=== PATIENT | female | born 1940 | race Caucasian/White ===

== ENCOUNTER 2017-01-04 12:34 | Inpatient (IN) | payer MEDICARE, BC ==
[2017-01-04] VITALS (11 sets, daily range): BP systolic 100–183; BP diastolic 49–100
[~2017-01-04] VITALS: Ht 160 cm; Wt 73.7 kg
--- NOTE | 2017-01-04 15:25 | PDOC2 ---
LIZMATTHEW Tomas HEEL TOP LIFT SPLITTER 01/04/17 1525: CARDIAC CONSULT DATE OF CONSULT Date of Consult DATE: 01/04/17 TIME: 15:23 REASON FOR CONSULT Reason for Consult: RA thrombus REFERRING PHYSICIAN Referring Physician: Dr. Jim Villanueva SOURCE Source: Chart review, Patient HISTORY OF PRESENT ILLNESS HISTORY OF PRESENT ILLNESS 76 year old female transferred from [facility] after CT scan demonstrated RA thrombus extending into the IVC. Patient with at least 10 day history of URI with progressive symptoms and reports spending significant time in bed over that last 10 days. Vigorous cough productive of green sputum until today. Denies chest pain or pressure, though dyspnea at rest and with exertion, PND, orthopnea and dizziness, lightheadedness with near syncope. Denies lower extremity edema, though with chronic bilateral swelling in knees after total joint replacement and revisions. Has not taken oral meds in about 10 days. D- Dimer was 2.01 @ [facility] earlier today and now on heparin gtt. NT-proBNP WNL. Reason for Visit: RA thrombus PAST MEDICAL HISTORY Cardiovascular: CAD (SC 5 - 6 years ago with LHC reported as normal), HTN, Hyperlipidemia CENTRAL NERVOUS SYSTEM: CVA (affecting speech - 1996) GI: GERD Heme/Onc: Other (denies history of previous DVT/PE/clot or clotting disorders) Hepatobiliary: No pertinent hx Psych: Anxiety Musculoskeletal: Osteoarthritis Rheumatologic: Rheumatoid arthritis Infectious disease: No pertinent hx ENT: No pertinent hx, Other (macular degeneration with 5 corrective surgeries) Renal/: No pertinent hx Endocrine: Diabetes (?; "borderline"), Hypothyroidism Dermatology: No pertinent hx PAST SURGICAL HISTORY Past Surgical History: Appendectomy, Cholecystectomy, Total knee replacement ( bilateral with revisions), Tonsillectomy, Hysterectomy (KRISTA with BSO), Other ( bilateral great toe joint replacements; left shoulder joint replacement; right elbow nerve transposition; 5 eye surgeries; bladder lift; back surgery with pins placed) FAMILY HISTORY Family History negative for CAD or clotting disorders SOCIAL HISTORY Smoke: No ALCOHOL: none Drugs: None Lives: with Family () ALLERGIES ALLERGIES: Coded Allergies: Penicillins (Verified Allergy, Intermediate, Hives, 01/04/17) amoxicillin (Verified Allergy, Intermediate, 01/04/17) clavulanic acid (Verified Allergy, Intermediate, 01/04/17) codeine (Verified Allergy, Intermediate, 01/04/17) erythromycin base (Verified Allergy, Intermediate, 01/04/17) morphine (Verified Allergy, Intermediate, 01/04/17) ROS Review of System 14 point review with pertinent positives in HPI PHYSICAL EXAM General: Alert, Oriented X3, Cooperative, mild distress HEENT: Atraumatic, PERRLA Lungs: Other (coarse, decreased in bases) Heart: Regular rate, Normal S1, Normal S2, No murmurs, Other (negative for carotid bruits) Abdomen: Normal bowel sounds, Soft Extremities: No edema, Normal pulses Skin: No rashes Neuro: Normal speech Psych/Mental Status: Mental status NL, Mood NL MUSCULOSKELETAL: Osteoarthritic changes both hands, Other (bilateral well healed incisions on knees) VITALS VITALS Vital Signs Date Time Temp Pulse Resp B/P Pulse Ox O2 Delivery O2 Flow Rate FiO2 01/04/17 14:00 56 18 173/85 98 Nasal Cannula 2.0 01/04/17 13:30 98.5 98.5 LABS Lab: see [facility] transfer paper work IMAGES IMAGES 01/04/2017 @ [facility]: CTa chest: 1.There is a large filling defect identified in the right atrium of the heart with possible extension into the inferior vena cava, suspicious for thrombus recommend echocardiogram and ultrasound of the bilateral lower extremities and the iliac veins and IVC for further evaluation. Other possibility includes flow mixing artifact. 2. No evidence of central pulmonary embolism. 3. Mild patchy diffuse groundglass airspace opacity identified in the bilateral lungs likely could be mild pulmonary edema or patchy glass infiltrates. Follow-up to resolution. ASSESSMENT/PLAN ASSESSMENT/PLAN 1. RA thrombus with ? of extension through SVC & IVC continue heparin gtt GWEN in a.m with general anesthesia for further evaluation @ 1130; discussed with patient and family 2. HTN resume home meds 3. ? of DM check A1C 4. HLD continue statin therapy FLP in a.m. 5. CAD history reported clean cath 4 -5 years ago 6. hypothyroidism continue meds 7. RA/OA hold oral NSAIDS while treated with heparin gtt 8. GERD continue H2 blockers Problems: SHAN TORRES MD 01/04/17 2140: CARDIAC CONSULT ALLERGIES ALLERGIES: Coded Allergies: Penicillins (Verified Allergy, Intermediate, Hives, 01/04/17) amoxicillin (Verified Allergy, Intermediate, 01/04/17) clavulanic acid (Verified Allergy, Intermediate, 01/04/17) codeine (Verified Allergy, Intermediate, 01/04/17) erythromycin base (Verified Allergy, Intermediate, 01/04/17) morphine (Verified Allergy, Intermediate, 01/04/17) ASSESSMENT/PLAN ASSESSMENT/PLAN Pt. seen and examined. Agree with above CONFERENCE INTERPRETER note. 76 yo woman presenting with dyspnea. OSH ct scan suggestive of RA thrombus. Reviewed CT images, compared to 1 year ago. Does not appear to have classic thrombus. suspect this is artifact she has had dyspnea x 2 weeks - suspect related to viral infection and uncontrolled BP Will plan for GWEN for definitive evaluate in a.m. Thanks for consultation. Problems: MATTHEW HILL APRN Jan 04, 2017 15:25 SHAN TORRES MD Jan 04, 2017 21:40
[2017-01-04] MEDS ORDERED: GABA600T2 PO (15:33)
[2017-01-04] MEDS ORDERED: LEVO5TAB2 PO (15:33)
[2017-01-04] MEDS ORDERED: SIMV80TA3 PO (15:33)
[2017-01-04] MEDS ORDERED: FAMO40TA57 PO (15:33)
[2017-01-04] MEDS ORDERED: CHOL10002 PO (15:33)
[2017-01-04] MEDS ORDERED: TRAZ50TA15 PO (15:33)
[2017-01-04] MEDS ORDERED: LEVO88TA4 PO (15:33)
[2017-01-04] MEDS ORDERED: CELE200C PO (15:33)
[2017-01-04] MEDS ORDERED: ALPR0.5T6 PO (15:33)
[2017-01-04] MEDS ORDERED: METO-269 PO (15:33)
[2017-01-04] MEDS ORDERED: 0.9 % SODIUM CHLORIDE 10 ML DISP.SYRIN. IV PRN (16:00)
[2017-01-04] MEDS ORDERED: LIDOCAINE 2% TOPICAL JELLY 5GM TUBE. TP ONE (16:00)
[2017-01-04] MEDS ORDERED: LIDOCAINE 2% VISCOUS 15 ML SOLUTION. MM ONE (16:00)
[2017-01-04] MEDS ORDERED: BENZOCAINE ONE 20% MUCOSAL SPRAY. MM (16:00)
[2017-01-04] MEDS: ALPRAZOLAM 0.5 MG TABLET PO SCH ×2 (16:26→21:03)
[2017-01-04] MEDS: METOPROLOL SUCC 24HR ER 50 MG TAB.ER.24H. PO SCH (16:26)
[2017-01-04] MEDS ORDERED: HEPARIN 25,000UTS/500ML PREMIX 500 ML IV PRN ×2 (16:45→17:15)
[2017-01-04] MEDS ORDERED: HEPARIN for IV BOLUS 10,000 UNIT/10 ML VIAL. IV PRN ×2 (17:15)
--- NOTE | 2017-01-04 17:41 | HP ---
ADMIT DATE: 01/04/2017 CHIEF COMPLAINT: Shortness of breath. HISTORY OF PRESENT ILLNESS: The patient is a 76-year-old woman without significant medical issues, who presented to the Emergency Room at [facility] 10 days ago with upper respiratory illness. She had a chest x-ray done and was sent home with a prescription for azithromycin. However, symptoms persisted and she returned today. A CT was obtained revealing a filling defect in the upper IVC reaching the right atrium. The ER physician consulted Dr. Carranza, who requested the patient be transferred to here for evaluation by GWEN. The patient relates that she did not have any fevers, but does have upper respiratory stuffiness. No sore throat, has cough, fairly dry. Have not been eaten terribly well for the past 5 days or so, but denies any nausea, vomiting or diarrhea. Family members are all sick as well. In elucidating further details, she denies any personal or family history of blood clots. She did have a leg injury about 2 weeks ago, which resulted in swelling in her calf for a couple of days on the left side. The symptoms have resolved since. Respiratory symptoms started shortly thereafter. PAST MEDICAL HISTORY: Hypothyroidism, hypertension, osteoarthritis, status post bilateral knee replacements, left shoulder replacement x 2. FAMILY HISTORY: Positive for lung cancer in father (smoker). SOCIAL HISTORY: She is , living with her . Never smoked, no alcohol, no drug use. ALLERGIES: PENICILLIN, CODEINE, MORPHINE, ERYTHROMYCIN BASE AND CLAVULANIC ACID. MEDICATIONS: Current medications reconciled with MAR. REVIEW OF SYSTEMS: Positive as per HPI. Rest of organ system review is negative. PHYSICAL EXAMINATION: VITAL SIGNS: From today show a blood pressure of 180/90, heart rate of 62, respiratory rate is 18. She is afebrile. GENERAL: This is a well-nourished, 76-year-old woman, alert and oriented, in no acute distress. HEENT: Shows no scleral icterus. Oral mucosa is pink and moist. Voice is nasally. NECK: Supple, without any palpable lymphadenopathy. LUNGS: Clear to auscultation bilaterally. CARDIOVASCULAR: Has regular rate and rhythm. ABDOMEN: Has positive bowel sounds, soft, nontender. EXTREMITIES: Show no edema. No Homans sign. SKIN: Warm, soft and dry without any rash. LABORATORY DATA: CBC and chemistries reviewed from [facility], anti-Xa is 0.4, APTT at 98. ASSESSMENT AND PLAN: This is a 76-year-old woman with apparent respiratory infection, probably viral, who was found incidentally with a filling defect versus flow artifact inferior vena cava into the right atrium. Dr. Carranza has been informed. He has planning a GWEN later today to evaluate the lesion. We will keep her on intravenous heparin for the time being. The history is somewhat unusual. We will try and obtain ultrasound of the lower extremities as well. She is n.p.o. for now until further evaluations are completed. Plan on restarting essential medications once procedures have been completed. YEVGENIY COTO MD DR: ÓSCAR/nts JOB#: [id number] / [id number] JOSE
[2017-01-04] MEDS ORDERED: FAMOTIDINE 20 MG TABLET. PO SCH (21:00)
[2017-01-04] MEDS ORDERED: SIMVASTATIN 40 MG TABLET. PO SCH (21:00)
[2017-01-04] MEDS ORDERED: GABAPENTIN 300 MG CAPSULE. PO SCH (21:00)
[2017-01-05] VITALS (13 sets, daily range): BP systolic 86–127; BP diastolic 48–68
[2017-01-05 04:17] LABS: HEMATOCRIT 43.6 % (36.0-47.0); HEMOGLOBIN 14.6 g/dL (12.0-15.5); RED BLOOD COUNT 5.08 x10^6/uL (3.50-5.40); RED CELL DISTRIBUTION WIDTH 14.9 % (11.5-14.5); WHITE BLOOD COUNT 7.7 x10^3/uL (4.0-11.0)
[2017-01-05] MEDS ORDERED: ALBUTEROL SULFATE 2.5 MG/3 ML NEBU. NEB PRN (05:00)
[2017-01-05 05:03] LABS: CALCIUM 9.1 mg/dL (8.5-10.1); CREATININE 0.8 mg/dL (0.6-1.0); GFR 70.1; MAGNESIUM 2.6 mg/dL (1.8-2.4); POTASSIUM 3.9 mmol/L (3.5-5.1)
[2017-01-05 05:07] LABS: CHOLESTEROL/HDL RATIO 5.1
[2017-01-05] MEDS ORDERED: LEVOTHYROXINE 88 MCG TABLET PO SCH (07:00)
[2017-01-05] MEDS ORDERED: IV RINGERS,LACTATED 1000ML 1,000 ML IV SCH (07:00)
[2017-01-05] MEDS: IPRATRPIUM/ALBUTEROL 0.5/2.5MG 3 ML NEBU. NEB SCH ×4 (07:53→16:31)
[2017-01-05] MEDS ORDERED: CHOLECALCIFEROL (VITAMIN D3) 1,000 UNIT TABLET PO SCH (09:00)
[2017-01-05] MEDS: METOPROLOL SUCC 24HR ER 50 MG TAB.ER.24H. PO SCH (09:00)
[2017-01-05] MEDS: ALPRAZOLAM 0.5 MG TABLET PO SCH (09:00)
[2017-01-05] MEDS ORDERED: CETIRIZINE HCL 10 MG TABLET PO SCH (09:00)
--- NOTE | 2017-01-05 10:06 | PDOC ---
PROGRESS NOTES Chief Complaint Chief Complaint Abn CT findings URI ASSESSMENT AND PLAN: 1. Filling defect in IVC -> R atrium: on empiric heparin. GWEN today 2. URI: s/p azithro. treat symptomatically Vitals Vitals Vital Signs Date Time Temp Pulse Resp B/P Pulse Ox O2 Delivery O2 Flow Rate FiO2 01/05/17 07:53 95 Nasal Cannula 2.0 01/05/17 06:00 52 14 104/48 01/05/17 04:00 97.9 97.9 Physical Exam General: Alert, Oriented X3, Cooperative, No acute distress Heart: Regular rate, No murmurs Lungs: Clear Abdomen: Normal bowel sounds, Soft Extremities: No edema Skin: No rashes Labs LABS Laboratory Tests Test 01/04/17 14:00 01/04/17 15:55 01/04/17 22:00 01/05/17 04:00 Nasal Screen MRSA (PCR) Negative (Negative) Activated Partial Thromboplast Time 98SEC (24-38) Heparin Anti-Xa Act, Unfractionated 0.41IU/mL (0.30-0.70) 0.32IU/mL (0.30-0.70) 0.35IU/mL (0.30-0.70) White Blood Count 7.7x10^3/uL (4.0-11.0) Red Blood Count 5.08x10^6/uL (3.50-5.40) Hemoglobin 14.6g/dL (12.0-15.5) Hematocrit 43.6% (36.0-47.0) Mean Corpuscular Volume 86fL (79-100) Mean Corpuscular Hemoglobin 29pg (25-35) Mean Corpuscular Hemoglobin Concent 34g/dL (31-37) Red Cell Distribution Width 14.9% (11.5-14.5) Platelet Count 236x10^3/uL (140-400) Sodium Level 140mmol/L (136-145) Potassium Level 3.9mmol/L (3.5-5.1) Chloride Level 105mmol/L (98-107) Carbon Dioxide Level 26mmol/L (21-32) Anion Gap 9 (6-14) Blood Urea Nitrogen 15mg/dL (7-20) Creatinine 0.8mg/dL (0.6-1.0) Estimated GFR (Cockcroft-Gault) 70.1 Glucose Level 95mg/dL (70-99) Calcium Level 9.1mg/dL (8.5-10.1) Magnesium Level 2.6mg/dL (1.8-2.4) Triglycerides Level 256mg/dL (0-150) Cholesterol Level 200mg/dL (0-200) LDL Cholesterol, Calculated 110mg/dL (0-100) VLDL Cholesterol, Calculated 51mg/dL (0-40) HDL Cholesterol 39mg/dL (40-60) Cholesterol/HDL Ratio 5.1 Review of Systems Review of Systems + cough w/ sputum production. no CP. anxious YEVGENIY COTO MD Jan 05, 2017 10:06
[2017-01-05] MEDS ORDERED: BENZOCAINE ONE 20% MUCOSAL SPRAY. (10:33)
[2017-01-05] MEDS ORDERED: LIDOCAINE 2% VISCOUS 15 ML SOLUTION. ONE (10:33)
[2017-01-05] MEDS ORDERED: LIDOCAINE 2% TOPICAL JELLY 30GM TUBE. TP ONE (10:33)
[2017-01-05] MEDS ORDERED: 0.9 % SODIUM CHLORIDE 10 ML DISP.SYRIN. IV PRN (11:30)
[2017-01-05] MEDS ORDERED: BENZOCAINE ONE 20% MUCOSAL SPRAY. MM (11:30)
[2017-01-05] MEDS ORDERED: LIDOCAINE 2% TOPICAL JELLY 5GM TUBE. TP ONE (11:30)
[2017-01-05] MEDS ORDERED: LIDOCAINE 2% VISCOUS 15 ML SOLUTION. MM ONE (11:30)
[2017-01-05] MEDS ORDERED: PROPOFOL 20 ML IV ONE (11:40)
[2017-01-05] MEDS ORDERED: LIDOCAINE 2% 100 MG/5 ML DISP.SYRIN. ONE (11:40)
[2017-01-05] MEDS ORDERED: BENZOCAINE/MENTHOL LOZENGE. PO PRN (14:30)
--- NOTE | 2017-01-05 15:07 | CARD ---
APPROVED REPORT EXAM: Two-dimensional and M-mode echocardiogram with Doppler and color Doppler. INDICATION Rt. atrial thrombus Reason For Test : Rt, atrial thrombus PROCEDURE After obtaining informed consent, patient underwent transesophageal echo in the ICU. Type of Sedation : Conscious Sedation Sedation was achieved with Propofol intravenously. Transesophageal probe was inserted and advanced into esophagus by Mitchel Carranza MD. The GWEN was performed without complications. Throughout the procedure, the blood pressure, pulse oximetry, cardiac rhythm, and rate were monitored . The patient tolerated the procedure without adverse effects. Recovery from conscious sedation was une ventful and vital signs were stable. LEFT VENTRICLE The left ventricle is normal size. There is normal left ventricular wall thickness. The left ventricu lar systolic function is normal and the ejection fraction is within normal range. EF 65% There is nor mal LV segmental wall motion. No left ventricle thrombus noted on this study. RIGHT VENTRICLE The right ventricle is normal size. There is normal right ventricular wall thickness. The right ventr icular systolic function is normal. ATRIA The left atrium size is normal. The right atrium size is normal. There is no mass or thrombus suspect ed in the right atrium. The interatrial septum is intact with no evidence for an atrial septal defect or patent foramen ovale as noted on 2-D or Doppler imaging. There is no thrombus noted in the left a trial appendage. AORTIC VALVE The aortic valve is mildly sclerotic. The aortic valve is trileaflet. Doppler and Color Flow revealed trace to mild aortic regurgitation. There is no significant aortic valvular stenosis. MITRAL VALVE There is no evidence of mitral valve prolapse. There is no mitral valve stenosis. Doppler and Color F low revealed trace mitral regurgitation. TRICUSPID VALVE Doppler and Color Flow revealed trace tricuspid regurgitation. There is no pulmonary hypertension. PULMONIC VALVE The pulmonary valve is normal in structure and function. Doppler and Color Flow revealed no pulmonic valvular regurgitation. There is no pulmonic valvular stenosis. GREAT VESSELS The aortic root is normal in size. The ascending aorta is normal in size. The pulmonary artery is nor mal. Normal pulmonary venous flow (Doppler). The IVC is normal in size and collapses >50% with inspir ation. Critical Notification Critical Value: No <Conclusion> The left ventricular systolic function is normal and the ejection fraction is within normal range. EF 65% There is normal LV segmental wall motion. The right atrium size is normal. There is no mass or thrombus suspected in the right atrium or RA/IVC junction. The IVC is normal in size and collapses >50% with inspiration.
--- NOTE | 2017-01-05 15:49 | RAD ---
Chest, 2 views, 01/05/2017: History: Chest congestion and cough The heart is mildly enlarged. There is calcific plaquing of the aorta. The pulmonary vascularity is normal. There is a calcified granuloma in the left lower lobe. A density at the cardiac apex is compatible with a prominent epicardial fat pad. No acute infiltrate is seen. There is no evidence of pleural fluid. A left shoulder prosthesis is in place. IMPRESSION: 1. Mild cardiomegaly and aortic atherosclerosis. 2. No acute abnormality is detected.
--- NOTE | 2017-01-06 20:27 | DS ---
DATE OF DISCHARGE: 01/05/2017 CHIEF COMPLAINT: Abnormal CT findings, upper respiratory infection. HOSPITAL COURSE: The patient is a 76-year-old woman with minimal medical issues, presented to the urgent care center at [facility] with shortness of breath and cough for the past 10 days. She had received outpatient antibiotic regimen without any relief of her symptoms. A CT of the chest revealed an abnormal filling defect in the inferior vena cava, reaching into the right atrium. Because of concerns for potential blood clot, she was transferred to [facility] for further workup and care. She was started on heparin drip. A GWEN was performed by Dr. Carranza on 11/07/2016, which did not reveal any abnormalities in the area of question. Drip was, therefore, stopped. The patient was discharged to home. For her ongoing respiratory symptoms, the CT actually had ruled out pneumonia. She was, therefore, treated as bronchitis, was given a Medrol Dosepak. pHYSICAL EXAM: VS: stable GEN: alert and oriented CV: regular rate and rhythm PULM: clear to auscultation GI: normal bowel sounds EXR: no edema DISCHARGE DIAGNOSES: CT abnormality, upper respiratory infection. DISPOSITION: To home. CONDITION: Stable. DISCHARGE MEDICATIONS: Please refer to MAR. DISCHARGE INSTRUCTIONS: The patient will follow up with PCP in 1-2 weeks. YEVGENIY COTO MD DR: ÓSCAR/nts JOB#: [id number] / [id number] JOSE
== END 2017-01-05 18:26 | disposition home or self-care (01) | DRG 153 ==
LOC: 1 WEST ICU 13:50
PROVIDERS: ADMIT Internal Medicine Hematology & Oncology; ATTEND Internal Medicine Hematology & Oncology
PROC: B24BZZ4 Ultrasonography of Heart with Aorta, Transesophageal (ICD-10-PCS; principal; 2017-01-05 11:30)
DX: J06.9 Acute upper respiratory infection, unspecified (principal); I10 Essential (primary) hypertension; E78.5 Hyperlipidemia, unspecified; I25.10 Atherosclerotic heart disease of native coronary artery without angina pectoris; K21.9 Gastro-esophageal reflux disease without esophagitis; E03.9 Hypothyroidism, unspecified; E11.9 Type 2 diabetes mellitus without complications; J40 Bronchitis, not specified as acute or chronic; Z96.612 Presence of left artificial shoulder joint; M19.90 Unspecified osteoarthritis, unspecified site; F41.9 Anxiety disorder, unspecified; M06.9 Rheumatoid arthritis, unspecified; Z96.653 Presence of artificial knee joint, bilateral; Z80.1 Family history of malignant neoplasm of trachea, bronchus and lung; Z86.73 Personal history of transient ischemic attack (TIA), and cerebral infarction without residual deficits; Z88.5 Allergy status to narcotic agent; Z88.0 Allergy status to penicillin; Z88.6 Allergy status to analgesic agent; Z88.1 Allergy status to other antibiotic agents; Z91.041 Radiographic dye allergy status; Z90.49 Acquired absence of other specified parts of digestive tract; Z90.710 Acquired absence of both cervix and uterus
CPT/HCPCS: 36415; 71020; 80048; 80061; 83036; 83735; 85027; 85520; 85730; 87641; 93312; 93325; 94250; 94640; J2704; J7620

== ENCOUNTER 2017-04-04 15:12 | Inpatient (IN) | payer MEDICARE, BC ==
[~2017-04-04] VITALS: Ht 160 cm; Wt 79.0 kg
[~2017-04-04 15:12] MED LIST: ALPR0.5T6 PO; CELE200C PO; CHOL10002 PO; FAMO40TA57 PO; GABA600T2 PO; LEVO5TAB2 PO; LEVO88TA4 PO; METO-269 PO; SIMV80TA3 PO; TRAZ50TA15 PO
[2017-04-04 17:27] VITALS: BP 135/65
[2017-04-04] MEDS ORDERED: ACETAMINOPHEN 650 MG/20.3 ML SOLUTION. PO PRN (17:45)
[2017-04-04] MEDS ORDERED: ONDANSETRON PF 4 MG/2 ML VIAL. IV PRN (17:45)
[2017-04-04] MEDS ORDERED: fentaNYL PF VIAL 100 MCG/2 ML VIAL IV PRN ×2 (17:45→21:15)
[2017-04-04] MEDS ORDERED: IBUPROFEN 400 MG TABLET. PO PRN (17:45)
[2017-04-04] MEDS ORDERED: HYDROcodone/APAP 5/325MG 1 TAB TABLET PO PRN (17:45)
[2017-04-04 18:02] VITALS: BP 135/65
[2017-04-04 18:45] LABS: BASO # 0.1 x10^3/uL (0.0-0.2); BASO % 1 % (0-3); EOS % 2 % (0-3); HEMOGLOBIN 13.2 g/dL (12.0-15.5); LYMPH # 1.2 x10^3/uL (1.0-4.8); LYMPH % 22 % (24-48); MEAN CORPUSCULAR HEMOGLOBIN 30 pg (25-35); MEAN CORPUSCULAR HGB CONC 34 g/dL (31-37); MEAN CORPUSCULAR VOLUME 88 fL (79-100); MONO % 8 % (0-9); NEUT % 68 % (31-73); PLATELET COUNT 197 x10^3/uL (140-400); RED BLOOD COUNT 4.45 x10^6/uL (3.50-5.40); RED CELL DISTRIBUTION WIDTH 14.1 % (11.5-14.5); WHITE BLOOD COUNT 5.6 x10^3/uL (4.0-11.0)
[2017-04-04 18:53] LABS: INR 1.1 (0.8-1.1); PROTHROMBIN TIME PATIENT 13.2 SEC (11.7-14.0)
[2017-04-04 18:57] LABS: CALCIUM 9.2 mg/dL (8.5-10.1); CREATININE 0.8 mg/dL (0.6-1.0); GFR 69.9; POTASSIUM 4.2 mmol/L (3.5-5.1)
[2017-04-04 19:00] VITALS: BP 138/50
[2017-04-04] MEDS ORDERED: traZODone 50 MG TABLET. PO PRN (19:00)
--- NOTE | 2017-04-04 19:02 | PDOC2 ---
NEUROLOGY CONSULT Date of Admission Date of Admission DATE: 04/04/17 TIME: 18:52 Reason for Consult Reason for Consult: IMPRESSION: Worsening headaches x 6 days. HTN Hypothyroidism Obesity. RECOMMENDATIONS/PLAN: Pain control. Brain MRI w/wo contrast. Lab: see orders including ESR. Treat medical diseases. Discussed with her daughter at bedside. HISTORY OF THE PRESENT ILLNESS: 77-y-old female patient with history of infrequent headaches in the past developed severe headaches for about 6 days this time to be hospitalized for further evaluation. She stated she had a few headaches in the past but not as severe as it this time. No motor or sensory deficits noted. No resistance of neck on exam. PAST MEDICAL HISTORY: Hypothyroidism, hypertension, osteoarthritis, status post bilateral knee replacements, left shoulder replacement x 2. FAMILY HISTORY: Positive for lung cancer in father (smoker). SOCIAL HISTORY: She is , living with her . Never smoked, no alcohol, no drug use. ALLERGIES: PENICILLIN, CODEINE, MORPHINE, ERYTHROMYCIN BASE AND CLAVULANIC ACID. MEDICATIONS: Refer to MAR REVIEW OF SYSTEMS: Constitutional: No malnutrition, weight loss, cachexia. Head: No traumatic brain or head injury. Skin: No edema, or rash. Ear: No infection. Eyes: No vision loss or color blindness. Nose: No bleeding or purulent discharges. Hearing: No hearing decrease. Neck: No recent injury. Breast: No history of cancer, masses,or discharges. Cardiac: No DC, arrhythmia. Pulmonary: No COPD. GI: No GI ulcer, GI bleeding. Urinary/genital: UTI. Endocrinologic: Obesity. Skeletomuscular: OA. Neurological: see HP. Psychiatric: Denies drug use/abuse. Otherwise, not [id number] review of systems. PHYSICAL EXAMINATION: General appearance is in acute distress. HEENT: Normocephalic and nontraumatic. Eyes, nose, ears, and throat are unremarkable. Neck is supple. No lymphadenopathy. No crepitus. Cardiovascular: S1, S2, regular rate and rhythm. Pulmonary: Clear to auscultation bilaterally. Abdomen: Bowel sounds are positive. Extremities: No rash, lesions, or edema. No restriction of range of motion NEUROLOGICAL EXAMINATION: Awake. Oriented to time, place and person. PERRL. EOMI. CN: no focal findings. Muscle tone: within normal. Muscle strength: 5- DTR: 2 UE, 0-1 at knee Plantar reflex: Flexor/Neutral response bilaterally Gait: not examined in bed. Sensory exam: no abnormal findings. No cerebellar signs elicited. F-T-N test fine. Current Medications Current Medications Current Medications Acetaminophen (Tylenol) 650 mg PRN Q6HRS PRN PO MILD PAIN / TEMP; Start at 17:45 Ibuprofen (Motrin) 400 mg PRN Q6HRS PRN PO INFLAMMATION; Start 04/04/17 at 17: 45 Ondansetron HCl (Zofran) 4 mg PRN Q6HRS PRN IV NAUSEA/VOMITING; Start 04/04/17 at 17:45 Acetaminophen/ Hydrocodone Bitart (Lortab 5/325) 1 tab Q6HRS PRN PO PAIN; Start 04/04/17 at 17:45; Status UNV Fentanyl Citrate (Fentanyl 2ml Vial) 25 mcg PRN Q2HR PRN IV PAIN Last administered on 04/04/17t 18:40; Start 04/04/17 at 17:45 Active Scripts Active Reported Celebrex (Celecoxib) 200 Mg Capsule 1 Cap PO DAILY Vitamin D (Cholecalciferol (Vitamin D3)) 1,000 Unit Tablet 1,000 Unit PO DAILY Trazodone Hcl 50 Mg Tablet 50 Mg PO HS PRN Simvastatin 80 Mg Tablet 80 Mg PO HS Toprol Xl (Metoprolol Succinate) 50 Mg Tab.er.24h 1 Tab PO DAILY Levothyroxine Sodium 88 Mcg Tablet 1 Tab PO DAILY Levocetirizine Dihydrochloride 5 Mg Tablet 1 Tab PO DAILY Gabapentin 600 Mg Tablet 600 Mg PO HS Pepcid (Famotidine) 40 Mg Tablet 40 Mg PO DAILY Alprazolam 0.5 Mg Tablet 1 Tab PO BID Allergies Allergies: Coded Allergies: Penicillins (Verified Allergy, Intermediate, Hives, 01/04/17) amoxicillin (Verified Allergy, Intermediate, 01/04/17) clavulanic acid (Verified Allergy, Intermediate, 01/04/17) codeine (Verified Allergy, Intermediate, 01/04/17) erythromycin base (Verified Allergy, Intermediate, 01/04/17) morphine (Verified Allergy, Intermediate, 01/04/17) Vitals VITALS Vital Signs Date Time Temp Pulse Resp B/P (MAP) Pulse Ox O2 Delivery O2 Flow Rate FiO2 04/04/17 18:40 96 04/04/17 18:02 97.9 54 20 135/65 (88) Room Air 97.9 Labs Labs Laboratory Tests Test 04/04/17 18:35 White Blood Count 5.6 x10^3/uL (4.0-11.0) Red Blood Count 4.45 x10^6/uL (3.50-5.40) Hemoglobin 13.2 g/dL (12.0-15.5) Hematocrit 39.0 % (36.0-47.0) Mean Corpuscular Volume 88 fL (79-100) Mean Corpuscular Hemoglobin 30 pg (25-35) Mean Corpuscular Hemoglobin Concent 34 g/dL (31-37) Red Cell Distribution Width 14.1 % (11.5-14.5) Platelet Count 197 x10^3/uL (140-400) Neutrophils (%) (Auto) 68 % (31-73) Lymphocytes (%) (Auto) 22 % (24-48) Monocytes (%) (Auto) 8 % (0-9) Eosinophils (%) (Auto) 2 % (0-3) Basophils (%) (Auto) 1 % (0-3) Neutrophils # (Auto) 3.8 x10^3uL (1.8-7.7) Lymphocytes # (Auto) 1.2 x10^3/uL (1.0-4.8) Monocytes # (Auto) 0.5 x10^3/uL (0.0-1.1) Eosinophils # (Auto) 0.1 x10^3/uL (0.0-0.7) Basophils # (Auto) 0.1 x10^3/uL (0.0-0.2) Laboratory Tests Test 04/04/17 18:35 White Blood Count 5.6 x10^3/uL (4.0-11.0) Red Blood Count 4.45 x10^6/uL (3.50-5.40) Hemoglobin 13.2 g/dL (12.0-15.5) Hematocrit 39.0 % (36.0-47.0) Mean Corpuscular Volume 88 fL (79-100) Mean Corpuscular Hemoglobin 30 pg (25-35) Mean Corpuscular Hemoglobin Concent 34 g/dL (31-37) Red Cell Distribution Width 14.1 % (11.5-14.5) Platelet Count 197 x10^3/uL (140-400) Neutrophils (%) (Auto) 68 % (31-73) Lymphocytes (%) (Auto) 22 % (24-48) Monocytes (%) (Auto) 8 % (0-9) Eosinophils (%) (Auto) 2 % (0-3) Basophils (%) (Auto) 1 % (0-3) Neutrophils # (Auto) 3.8 x10^3uL (1.8-7.7) Lymphocytes # (Auto) 1.2 x10^3/uL (1.0-4.8) Monocytes # (Auto) 0.5 x10^3/uL (0.0-1.1) Eosinophils # (Auto) 0.1 x10^3/uL (0.0-0.7) Basophils # (Auto) 0.1 x10^3/uL (0.0-0.2) HEATH MORENO MD Apr 04, 2017 19:02
[2017-04-04] MEDS: ALPRAZolam 0.5 MG TABLET PO SCH (21:00)
[2017-04-04] MEDS ORDERED: GABAPENTIN 300 MG CAPSULE. PO SCH (21:00)
[2017-04-04] MEDS ORDERED: SIMVASTATIN 40 MG TABLET. PO SCH (21:00)
--- NOTE | 2017-04-04 21:18 | PDOC1 ---
History and Physical Date of Admission Date of Admission DATE: 04/04/17 TIME: 21:10 Identification/Chief Complaint Chief Complaint headache, severe Problems: Source Source: Caregiver, Chart review, Patient History of Present Illness History of Present Illness 77 y.o female, relatively previously healthy transferred from [place] to get MRI and neuro and cards consult. Acute onset 5-6 days hx constant headache, left parieto-occipital, no BOV, no nausea, emesis, no fevers, no stiff neck, no URI sxs, no recent travel, Denies hx of migraine or chronic headaches. Went to [facility] initially today, given IV dialudid and sent home. BUt then headaches got severe (Family member claims she is allergic to dilaudid), had some CP so went to [facility], AT [facility], labs ok but headache persistent, LP was discussed but pt did not want - STILL refusing it. SO far no clear dx of headache, fentanyl low dose helped somewhat,. Looks miserable but neurologically intact and no FNDS. VS ok. HAs never had MPI or cardiac work up done, HX of TIA? and "mild heart attack", 1990s, no stents. Past Medical History Cardiovascular: CAD, HTN, Hyperlipidemia CENTRAL NERVOUS SYSTEM: CVA GI: GERD Heme/Onc: Other Hepatobiliary: No pertinent hx Psych: Anxiety Musculoskeletal: Osteoarthritis Rheumatologic: Rheumatoid arthritis Infectious disease: No pertinent hx Renal/: No pertinent hx Endocrine: Diabetes, Hypothyroidism Past Surgical History Past Surgical History: Appendectomy, Cholecystectomy, Total knee replacement, Tonsillectomy, Hysterectomy, Other Family History Family History: No Significant Social History Smoke: No ALCOHOL: none Drugs: None Current Medications Current Medications Current Medications Acetaminophen (Tylenol) 650 mg PRN Q6HRS PRN PO MILD PAIN / TEMP Last administered on 04/04/17t 20:46; Start 04/04/17 at 17:45 Ibuprofen (Motrin) 400 mg PRN Q6HRS PRN PO INFLAMMATION; Start 04/04/17 at 17: 45 Ondansetron HCl (Zofran) 4 mg PRN Q6HRS PRN IV NAUSEA/VOMITING; Start 04/04/17 at 17:45 Acetaminophen/ Hydrocodone Bitart (Lortab 5/325) 1 tab Q6HRS PRN PO PAIN; Start 04/04/17 at 17:45; Status UNV Fentanyl Citrate (Fentanyl 2ml Vial) 25 mcg PRN Q2HR PRN IV PAIN Last administered on 04/04/17 18:40; Start 04/04/17 at 17:45 Alprazolam (Xanax) 0.5 mg BID PO ; Start 04/04/17 at 21:00 Celecoxib (CeleBREX) 200 mg DAILY PO ; Start 04/05/17 at 09:00 Vitamin D (Vitamin D3) 1,000 unit DAILY PO ; Start 04/05/17 at 09:00 Levothyroxine Sodium (Synthroid) 88 mcg DAILY07 PO ; Start 04/05/17 at 09:00 Trazodone HCl (Desyrel) 50 mg PRN QHS PRN PO INSOMNIA; Start 04/04/17 at 19:00 Famotidine (Pepcid) 40 mg DAILY PO ; Start 04/05/17 at 09:00 Gabapentin (Neurontin) 600 mg QHS PO Last administered on 04/04/17 20:46; Start 04/04/17 at 21:00 Cetirizine HCl (ZyrTEC) 10 mg DAILY PO ; Start 04/05/17 at 09:00 Metoprolol Succinate (Toprol Xl) 50 mg DAILY PO ; Start 04/05/17 at 09:00 Simvastatin (Zocor) 80 mg QHS PO Last administered on 04/04/17 20:46; Start at 21:00 Active Scripts Active Reported Celebrex (Celecoxib) 200 Mg Capsule 1 Cap PO DAILY Vitamin D (Cholecalciferol (Vitamin D3)) 1,000 Unit Tablet 1,000 Unit PO DAILY Trazodone Hcl 50 Mg Tablet 50 Mg PO HS PRN Simvastatin 80 Mg Tablet 80 Mg PO HS Toprol Xl (Metoprolol Succinate) 50 Mg Tab.er.24h 1 Tab PO DAILY Levothyroxine Sodium 88 Mcg Tablet 1 Tab PO DAILY Levocetirizine Dihydrochloride 5 Mg Tablet 1 Tab PO DAILY Gabapentin 600 Mg Tablet 600 Mg PO HS Pepcid (Famotidine) 40 Mg Tablet 40 Mg PO DAILY Alprazolam 0.5 Mg Tablet 1 Tab PO BID Allergies Allergies: Coded Allergies: codeine (Verified Allergy, Severe, Throat swells, 04/04/17) morphine (Verified Allergy, Severe, Throat swells, 04/04/17) Penicillins (Verified Allergy, Intermediate, Hives, 3/16/17) amoxicillin (Verified Allergy, Intermediate, 01/04/17) clavulanic acid (Verified Allergy, Intermediate, 01/04/17) erythromycin base (Verified Allergy, Intermediate, 01/04/17) ROS Review of System headaches, CP, the latter resolved - all else is neg PSYCHOLOGICAL ROS: No: Anxiety, Behavioral Disorder, Concentration difficultie , Decreased libido, Depression, Disorientation, Hallucinations, Hostility, Irritablity, Memory difficulties, Mood Swings, Obsessive thoughts, Physical abuse, Sexual abuse, Sleep disturbances, Suicidal ideation, Other Eyes: No Blurry vision, No Decreased vision, No Double vision, No Dry eyes, No Excessive tearing, No Eye Pain, No Itchy Eyes, No Loss of vision, No Photophobia , No Scotomata, No Uses contacts, No Uses glasses, No Other HEENT: No: Heacaches, Visual Changes, Hearing change, Nasal congestion, Nasal discharge, Oral lesions, Sinus pain, Sore Throat, Epistaxis, Sneezing, Snoring, Tinnitus, Vertigo, Vocal changes, Other Hematological and Lymphatic: No: Bleeding Problems, Blood Clots, Blood Transfusions, Brusing, Night Sweats, Pallor, Swollen Lymph Nodes, Other ENDOCRINE: No: Breast Changes, Galactorrhea, Hair Pattern Changes, Hot Flashes , Malaise/lethargy, Mood Swings, Palpitations, Polydipsia/polyuria, Skin Changes , Temperature Intolerance, Unexpected Weight Changes, Other Breast: No New/Changing Breast Lumps, No Nipple changes, No Nipple discharge, No Other Respiratory: No: Cough, Hemoptysis, Orthopnea, Pleuritic Pain, Shortness of breath, SOB with excertion, Sputum Changes, Stridor, Tachypnea, Wheezing, Other Cardiovascular: yes Chest Pain, No Palpitations, No Orthopnea, No Paroxysmal Noc. Dyspnea, No Edema, No Lt Headedness, No Other Gastrointestinal: No Nausea, No Vomiting, No Abdominal Pain, No Diarrhea, No Constipation, No Melena, No Hematochezia, No Other Genitourinary: No Dysuria, No Frequency, No Incontinence, No Hematuria, No Retention, No Discharge, No Urgency, No Pain, No Flank Pain, No Other, No , No , No , No , No , No , No Musculoskeletal: No Gait Disturbance, No Joint Pain, No Joint Stiffness, No Joint Swelling, No Muscle Pain, No Muscular Weakness, No Pain In:, No Swelling In:, No Other Neurological: Yes Headaches Skin: No Dry Skin, No Eczema, No Hair Changes, No Lumps, No Mole Changes, No Mottling, No Nail Changes, No Pruritus, No Rash, No Skin Lesion Changes, No Other, No Acne Physical Exam General: Alert, Oriented X3, Cooperative, No acute distress HEENT: Atraumatic, PERRLA, EOMI Lungs: Clear to auscultation, Normal air movement Heart: S1S2, RRR, no thrills, no rubs, no gallops, no murmurs Cardiovascular: S1, S2 Breasts: Normal, Rt breast nml w/o mass, Lt breast nml w/o mass, Nipples normal Abdomen: Normal bowel sounds, Soft, No tenderness, No hepatosplenomegaly, No masses Rectal Exam: not examined PELVIC: Nml ext genitalia Extremities: No clubbing, No cyanosis, No edema, Normal pulses, No tenderness/ swelling Skin: No rashes, No breakdown, No significant lesion Neuro: Normal gait, Normal speech, Strength at 5/5 X4 ext, Normal tone, Sensation intact, Cranial nerves 3-12 NL, Reflexes 2+ Psych/Mental Status: Mental status NL, Mood NL Vitals Vitals Vital Signs Date Time Temp Pulse Resp B/P (MAP) Pulse Ox O2 Delivery O2 Flow Rate FiO2 04/04/17 19:43 96 Nasal Cannula 2.0 04/04/17 19:00 98.1 63 18 138/50 (79) 98.1 Labs Labs Laboratory Tests Test 04/04/17 18:35 White Blood Count 5.6 x10^3/uL (4.0-11.0) Red Blood Count 4.45 x10^6/uL (3.50-5.40) Hemoglobin 13.2 g/dL (12.0-15.5) Hematocrit 39.0 % (36.0-47.0) Mean Corpuscular Volume 88 fL (79-100) Mean Corpuscular Hemoglobin 30 pg (25-35) Mean Corpuscular Hemoglobin Concent 34 g/dL (31-37) Red Cell Distribution Width 14.1 % (11.5-14.5) Platelet Count 197 x10^3/uL (140-400) Neutrophils (%) (Auto) 68 % (31-73) Lymphocytes (%) (Auto) 22 % (24-48) Monocytes (%) (Auto) 8 % (0-9) Eosinophils (%) (Auto) 2 % (0-3) Basophils (%) (Auto) 1 % (0-3) Neutrophils # (Auto) 3.8 x10^3uL (1.8-7.7) Lymphocytes # (Auto) 1.2 x10^3/uL (1.0-4.8) Monocytes # (Auto) 0.5 x10^3/uL (0.0-1.1) Eosinophils # (Auto) 0.1 x10^3/uL (0.0-0.7) Basophils # (Auto) 0.1 x10^3/uL (0.0-0.2) Erythrocyte Sedimentation Rate 7 (0-25) Prothrombin Time 13.2 SEC (11.7-14.0) Prothromb Time International Ratio 1.1 (0.8-1.1) Sodium Level 140 mmol/L (136-145) Potassium Level 4.2 mmol/L (3.5-5.1) Chloride Level 106 mmol/L (98-107) Carbon Dioxide Level 28 mmol/L (21-32) Anion Gap 6 (6-14) Blood Urea Nitrogen 9 mg/dL (7-20) Creatinine 0.8 mg/dL (0.6-1.0) Estimated GFR (Cockcroft-Gault) 69.9 Glucose Level 97 mg/dL (70-99) Calcium Level 9.2 mg/dL (8.5-10.1) Laboratory Tests Test 04/04/17 18:35 White Blood Count 5.6 x10^3/uL (4.0-11.0) Red Blood Count 4.45 x10^6/uL (3.50-5.40) Hemoglobin 13.2 g/dL (12.0-15.5) Hematocrit 39.0 % (36.0-47.0) Mean Corpuscular Volume 88 fL (79-100) Mean Corpuscular Hemoglobin 30 pg (25-35) Mean Corpuscular Hemoglobin Concent 34 g/dL (31-37) Red Cell Distribution Width 14.1 % (11.5-14.5) Platelet Count 197 x10^3/uL (140-400) Neutrophils (%) (Auto) 68 % (31-73) Lymphocytes (%) (Auto) 22 % (24-48) Monocytes (%) (Auto) 8 % (0-9) Eosinophils (%) (Auto) 2 % (0-3) Basophils (%) (Auto) 1 % (0-3) Neutrophils # (Auto) 3.8 x10^3uL (1.8-7.7) Lymphocytes # (Auto) 1.2 x10^3/uL (1.0-4.8) Monocytes # (Auto) 0.5 x10^3/uL (0.0-1.1) Eosinophils # (Auto) 0.1 x10^3/uL (0.0-0.7) Basophils # (Auto) 0.1 x10^3/uL (0.0-0.2) Erythrocyte Sedimentation Rate 7 (0-25) Prothrombin Time 13.2 SEC (11.7-14.0) Prothromb Time International Ratio 1.1 (0.8-1.1) Sodium Level 140 mmol/L (136-145) Potassium Level 4.2 mmol/L (3.5-5.1) Chloride Level 106 mmol/L (98-107) Carbon Dioxide Level 28 mmol/L (21-32) Anion Gap 6 (6-14) Blood Urea Nitrogen 9 mg/dL (7-20) Creatinine 0.8 mg/dL (0.6-1.0) Estimated GFR (Cockcroft-Gault) 69.9 Glucose Level 97 mg/dL (70-99) Calcium Level 9.2 mg/dL (8.5-10.1) VTE Prophylaxis Ordered VTE Prophylaxis Devices: Yes VTE Pharmacological Prophylaxi: Yes Assessment/Plan Assessment/Plan 1. Acute headache 2. Chest pains 3. Hx CAD, dyslipidemia, hypothyroidism - all chronic stable PLAN: Admit Get MRI head GEt neuro expertise LP might be the next step if tests unrevealing, r/o high opening pressures or meningitis though the latter unlikely,.... Consult cards re CP Cycle CE PT/OT Supportive meds Inc fentanyl dose REsume home meds - hld off NSAID in case LP? Can check TSH, t3, t4 Dw family and pt and RN ARTEMIO MISHRA MD Apr 04, 2017 21:18
[2017-04-04 23:08] VITALS: BP 112/49
[2017-04-05 02:50] VITALS: BP 101/42
[2017-04-05 07:55] VITALS: BP 111/55
[2017-04-05] MEDS: ALPRAZolam 0.5 MG TABLET PO SCH (07:59)
[2017-04-05] MEDS ORDERED: CELECOXIB 200 MG CAPSULE. PO SCH (09:00)
[2017-04-05] MEDS ORDERED: CETIRIZINE HCL 10 MG TABLET. PO SCH (09:00)
[2017-04-05] MEDS ORDERED: LEVOTHYROXINE 88 MCG TABLET PO SCH (09:00)
[2017-04-05] MEDS ORDERED: METOPROLOL SUCC 24HR ER 50 MG TAB.ER.24H. PO SCH (09:00)
[2017-04-05] MEDS ORDERED: CHOLECALCIFEROL (VITAMIN D3) 1,000 UNIT TABLET PO SCH (09:00)
[2017-04-05] MEDS ORDERED: FAMOTIDINE 20 MG TABLET. PO SCH (09:00)
--- NOTE | 2017-04-05 09:01 | ACF ---
Admission Forms Criteria HEADACHES Clinical Indications for Admission to Inpatient Care (Place 'X' for any and all applicable criteria): Admission is indicated for ANY ONE of the following(1)(2)(3)(4): [X]I. Inpatient admission required rather than observational care (Also use Headaches: Observation Care as appropriate) because of ANY ONE of the following: [X]a) Severe pain requiring acute inpatient management [ ]b) Altered mental status that is severe or persistent [ ]c) Vomiting or dehydration that is severe or persistent [ ]d) New-onset focal neurologic deficit that is severe or persistent [ ]e) Hypertension requiring inpatient treatment [ ]f) Severe (new) neurologic findings requiring inpatient care as indicated by ANY ONE of following(9)(10): [ ]1) Papilledema [ ]2) Cerebral edema [ ]3) Mass effect on CT scan [ ]4) Cerebral bleeding, ischemia, or vasospasm(16) [ ]5) Hydrocephalus(17) [ ]6) Uncontrolled seizures [ ]g) IV infusion of anticoagulation, platelet inhibitors vasoactive, or antiarrhythmic medication. [ ]h) Cerebral bleeding, hydrocephalus, or vasospasm monitoring (16) [ ]i) Increased intracranial pressure or cerebral edema monitoring (17) [ ]j) Other condition, treatment or monitoring requiring inpatient admission [ ]II. Unruptured but threatening aneurysm or vascular malformation [ ]III. Venous sinus thrombosis [ ]IV. Increased intracranial pressure [ ]V. Cerebral spinal fluid leak with decreased intracranial pressure [ ]. Medication-overuse headache that has failed all outpatient management options [ ]VII. Vasculitis (eg, giant cell (temporal) arteritis, central nervous system vasculitis) requiring IV corticosteroids, IV antithrombotic therapy, or inpatient monitoring (eg, visual symptoms or findings, other ischemic manifestations)[A](10)(11) Extended stay beyond goal length of stay may be needed for (27): [ ]a) Intractable migraine [ ]b) Subarachnoid or intracranial hemorrhage [ ]c) Malignant hypertension [ ]d) Detoxification from drug withdrawal in medication-overuse headache (29) The original [facility] content created by [facility] has been revised. The portions of the content which have been revised are identified through the use of italic text or in bold, and Silvano Stout has neither reviewed nor approved the modified material.All other unmodified content is copyright [facility]. Please see references footnoted in the original [facility] edition 2016 Admission Criteria Met?: Yes HEIDI RODRIGUEZ Apr 05, 2017 09:00
[2017-04-05 10:48] VITALS: BP 106/47
--- NOTE | 2017-04-05 11:29 | PDOC2 ---
ALTON SOTO IP LITIGATION ASSOCIATE 04/05/17 1129: CARDIAC CONSULT DATE OF CONSULT Date of Consult DATE: 04/05/17 TIME: 10:51 REASON FOR CONSULT Reason for Consult: Chest pain REFERRING PHYSICIAN Referring Physician: Timothy SOURCE Source: Chart review, Patient HISTORY OF PRESENT ILLNESS HISTORY OF PRESENT ILLNESS This is a pleasant 77 yo female admitted for complains of MCCRARY and CP. Reports being at [facility] initially with left unilateral MCCRARY without any associated stroke symptoms. No visual or auditory disturbances but described MCCRARY as throbbing and sharp going to posterior neck. Dilaudid was given over there and was discharged. Upon arriving to her home she started having severe left rib cage pain to mid axillary region that radiated mid lower chest. This lasted 7 minutes and spontaneously got better which recurred after admission to [facility] ED but not as bad. Complained of forehead sweating but no significant diaphoresis nausea. Her left side pain is reproducible with gentle palpation and worse with deep breathing. Denies any palpitations, dizziness or any left shoulder jaw radiation of pain. She does however has been experiencing feeling week and sometimes CAM. She did have stress test May or Jun 2016 from [facility] and was told to be normal. Denies any recent falls, injury, no osteoporosis but she does have chronic back pain. Denies any fever chills. Her MCCRARY is currently better. PAST MEDICAL HISTORY Past Medical History Cardiovascular: CAD (VT? with LHC reported as normal), HTN, Hyperlipidemia, sinus bradycardia Pulmonary CENTRAL NERVOUS SYSTEM: CVA (affecting speech - 1996) GI: GERD Heme/Onc: Other (denies history of previous DVT/PE/clot or clotting disorders) Hepatobiliary: No pertinent hx Psych: Anxiety Musculoskeletal: Osteoarthritis Rheumatologic: Rheumatoid arthritis Infectious disease: No pertinent hx ENT: No pertinent hx, Other (macular degeneration with 5 corrective surgeries) Renal/: No pertinent hx Endocrine: pre Diabetes, Hypothyroidism Dermatology: No pertinent hx PAST SURGICAL HISTORY Past Surgical History Appendectomy, Cholecystectomy, Total knee replacement (bilateral with revisions) , Tonsillectomy, Hysterectomy (KRISTA with BSO), Other (bilateral great toe joint replacements; left shoulder joint replacement; right elbow nerve transposition; 5 eye surgeries; bladder lift; back surgery with pins placed) FAMILY HISTORY Family History Noncontributory SOCIAL HISTORY Smoke: No ALCOHOL: none Drugs: None Lives: with Family CURRENT MEDICATIONS CURRENT MEDICATIONS Current Medications Medications (Trade) Dose Ordered Sig/Claus Route PRN Reason Start Time Stop Time Status Last Admin Dose Admin Acetaminophen (Tylenol) 650 mg PRN Q6HRS PRN PO MILD PAIN / TEMP 04/04/17 17:45 04/04/17 20:46 Fentanyl Citrate (Fentanyl 2ml Vial) 25 mcg PRN Q2HR PRN IV PAIN 04/04/17 17:45 04/04/17 21:11 DC 04/04/17 18:40 Vitamin D (Vitamin D3) 1,000 unit DAILY PO 04/05/17 09:00 04/05/17 08:47 Levothyroxine Sodium (Synthroid) 88 mcg DAILY07 PO 04/05/17 09:00 04/05/17 08:47 Famotidine (Pepcid) 40 mg DAILY PO 04/05/17 09:00 04/05/17 08:47 Gabapentin (Neurontin) 600 mg QHS PO 04/04/17 21:00 04/04/17 20:46 Cetirizine HCl (ZyrTEC) 10 mg DAILY PO 04/05/17 09:00 04/05/17 08:47 Metoprolol Succinate (Toprol Xl) 50 mg DAILY PO 04/05/17 09:00 04/05/17 08:48 Simvastatin (Zocor) 80 mg QHS PO 04/04/17 21:00 04/04/17 20:46 Fentanyl Citrate (Fentanyl 2ml Vial) 50 mcg PRN Q2HR PRN IV PAIN 04/04/17 21:15 04/04/17 22:12 ALLERGIES ALLERGIES: Coded Allergies: codeine (Verified Allergy, Severe, Throat swells, 04/04/17) morphine (Verified Allergy, Severe, Throat swells, 04/04/17) Penicillins (Verified Allergy, Intermediate, Hives, 01/04/17) amoxicillin (Verified Allergy, Intermediate, 01/04/17) clavulanic acid (Verified Allergy, Intermediate, 01/04/17) erythromycin base (Verified Allergy, Intermediate, 01/04/17) latex (Verified Allergy, Intermediate, 04/05/17) ROS Review of System 14 point ROS evaluated with pertinent positives noted per HPI PHYSICAL EXAM General: Alert, Oriented X3, Cooperative, No acute distress HEENT: Atraumatic, Mucous membr. moist/pink Lungs: Clear to auscultation, Normal air movement Heart: Regular rate (SB), Normal S1, Normal S2, Other (2/6 diastolic murmur to JAG border) Abdomen: Soft, No tenderness Extremities: No cyanosis, No edema Skin: No breakdown, No significant lesion Neuro: Normal speech, Sensation intact Psych/Mental Status: Mental status NL, Mood NL MUSCULOSKELETAL: Osteoarthritic changes both hands VITALS VITALS Vital Signs Date Time Temp Pulse Resp B/P (MAP) Pulse Ox O2 Delivery O2 Flow Rate FiO2 04/05/17 10:48 97.6 53 14 106/47 (66) 98 Nasal Cannula 2.0 97.6 LABS Lab: Laboratory Tests Test 04/04/17 18:35 04/05/17 05:05 White Blood Count 5.6 x10^3/uL (4.0-11.0) Red Blood Count 4.45 x10^6/uL (3.50-5.40) Hemoglobin 13.2 g/dL (12.0-15.5) Hematocrit 39.0 % (36.0-47.0) Mean Corpuscular Volume 88 fL (79-100) Mean Corpuscular Hemoglobin 30 pg (25-35) Mean Corpuscular Hemoglobin Concent 34 g/dL (31-37) Red Cell Distribution Width 14.1 % (11.5-14.5) Platelet Count 197 x10^3/uL (140-400) Neutrophils (%) (Auto) 68 % (31-73) Lymphocytes (%) (Auto) 22 % (24-48) Monocytes (%) (Auto) 8 % (0-9) Eosinophils (%) (Auto) 2 % (0-3) Basophils (%) (Auto) 1 % (0-3) Neutrophils # (Auto) 3.8 x10^3uL (1.8-7.7) Lymphocytes # (Auto) 1.2 x10^3/uL (1.0-4.8) Monocytes # (Auto) 0.5 x10^3/uL (0.0-1.1) Eosinophils # (Auto) 0.1 x10^3/uL (0.0-0.7) Basophils # (Auto) 0.1 x10^3/uL (0.0-0.2) Erythrocyte Sedimentation Rate 7 (0-25) Prothrombin Time 13.2 SEC (11.7-14.0) Prothromb Time International Ratio 1.1 (0.8-1.1) Sodium Level 140 mmol/L (136-145) Potassium Level 4.2 mmol/L (3.5-5.1) Chloride Level 106 mmol/L (98-107) Carbon Dioxide Level 28 mmol/L (21-32) Anion Gap 6 (6-14) Blood Urea Nitrogen 9 mg/dL (7-20) Creatinine 0.8 mg/dL (0.6-1.0) Estimated GFR (Cockcroft-Gault) 69.9 Glucose Level 97 mg/dL (70-99) Calcium Level 9.2 mg/dL (8.5-10.1) Troponin I Quantitative < 0.017 ng/mL (0.000-0.055) ECHOCARDIOGRAM ECHOCARDIOGRAM <Conclusion> GWEN The left ventricular systolic function is normal and the ejection fraction is within normal range. EF 65% There is normal LV segmental wall motion. The right atrium size is normal. There is no mass or thrombus suspected in the right atrium or RA/IVC junction. The IVC is normal in size and collapses >50% with inspiration. DICTATED and SIGNED BY: SHAN TORRES MD DATE: 01/05/17 1506 ASSESSMENT/PLAN ASSESSMENT/PLAN 1. Atypical chest pain: likely MSK, reproducible. Troponin normal, EKG SB and no acute changes 2. Left unilateral MCCRARY: x7 days per pt. Neuro following 3. HTN: controlled 4. HLP 5. Asymptomatic bradycardia: HR 40s. was at 150 mg Toprol XL at one point. 6. Hypothyroidism 7. Hx of RA 8. Hx of GERD Recommendations 1. Recent GWEN with normal LV function and EF. Will decrease toprol. Could incorporate ACEi or ARB if BP becomes labile. Hydralazine IV PRN. 2. Continue with troponin series. Obtain stress test report done by [facility] on may or jun which was deemed normal per pt. 3. W/U per neuro 4. Continue secondary prevention. 5. Topical NSAID?, defer to PCP 6. TSH, Mg. Problems: SHAN TORRES MD 04/05/17 1208: CARDIAC CONSULT ALLERGIES ALLERGIES: Coded Allergies: codeine (Verified Allergy, Severe, Throat swells, 04/04/17) morphine (Verified Allergy, Severe, Throat swells, 04/04/17) Penicillins (Verified Allergy, Intermediate, Hives, 01/04/17) amoxicillin (Verified Allergy, Intermediate, 01/04/17) clavulanic acid (Verified Allergy, Intermediate, 01/04/17) erythromycin base (Verified Allergy, Intermediate, 01/04/17) latex (Verified Allergy, Intermediate, 04/05/17) ASSESSMENT/PLAN ASSESSMENT/PLAN Pt. seen and examined. 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 77 y.o woman with non-cardiac chest pain normal cardiac exam No further testing needed. Trop negative. Recent GWEN negative. Supportive care. Thanks for consult. Problems: ALTON SOTO APRN Apr 05, 2017 11:29 SHAN TORRES MD Apr 05, 2017 12:08
[2017-04-05] MEDS ORDERED: hydrALAZINE 20 MG/ML VIAL. IVP PRN (11:30)
[2017-04-05 11:36] LABS: MAGNESIUM 2.3 mg/dL (1.8-2.4)
[2017-04-05 11:39] LABS: CHOLESTEROL/HDL RATIO 6.3
[2017-04-05] MEDS ORDERED: ALPRAZolam 0.5 MG TABLET PO PRN (12:15)
[2017-04-05] MEDS ORDERED: GADOBUTROL 7.5 MMOL/7.5 ML VIAL IV ONE (12:30)
--- NOTE | 2017-04-05 13:05 | RAD ---
MRI Brain with and without contrast History: Dizziness with standing for 7 days, headache Technique: Axial diffusion, axial gradient echo T2, axial T2, axial FLAIR, sagittal and axial T1, and postcontrast axial, sagittal, and coronal T1-weighted images were acquired of the brain. Contrast: 7 cc Gadavist Comparison: None Findings: There is no evidence of recent infarct or cytotoxic edema. Ventricular size is proportionate to the sulcal spaces. There is mild generalized supratentorial involutional change.There is no significant midline shift, intraaxial mass effect, or focal abnormal extra-axial fluid collection. There is very mild T2 and FLAIR hyperintense abnormality such as of the parietal and periatrial white matter bilaterally, also very minimally adjacent to the frontal horns. There is extra-axial enhancing mass along the right lateral convexity in the frontal temporal region, up to 2.4 cm AP by 0.9 cm transverse by 2.1 cm cc, adjacent dural thickening and enhancement. There is no nodular parenchymal enhancement. There is preservation of the major intracranial flow-voids at the skull base. The cerebellar tonsils are normal in location. There is no significant abnormality of the pineal gland or pituitary gland. Paranasal sinuses are overall aerated. The mastoid air cells are aerated. There is preserved marrow signal of the clivus. There has been lens surgery bilaterally. Impression: 1. There is extra-axial enhancing mass along the right lateral convexity most compatible with a meningioma. 2. There is mild generalized supratentorial involutional change. Very mild T2 and FLAIR hyperintense signal abnormality of the supratentorial white matter is probably due to chronic microvascular ischemic disease in a patient this age. Electronically signed by: Henok Winchester MD (04/05/2017 1:02 PM)
[2017-04-05] MEDS ORDERED: IBUP-1027 PO (13:17)
--- NOTE | 2017-04-05 13:31 | PDOC ---
PROGRESS NOTES Assessment Assessment Worsening headaches x 6 days before admission. Right frontal temporal 2.4 x 0.9 x 2.1 cm mass, meningioma? HTN Hypothyroidism Obesity. RECOMMENDATIONS/PLAN: Pain control. Consult Neurosurgery. Treat medical diseases. Discussed with her , daughter at bedside on 04/05. HISTORY OF THE PRESENT ILLNESS: 77-y-old female patient with history of infrequent headaches in the past developed severe headaches for about 6 days this time to be hospitalized for further evaluation. She stated she had a few headaches in the past but not as severe as it this time. No motor or sensory deficits noted. No resistance of neck on exam. PAST MEDICAL HISTORY: Hypothyroidism, hypertension, osteoarthritis, status post bilateral knee replacements, left shoulder replacement x 2. FAMILY HISTORY: Positive for lung cancer in father (smoker). SOCIAL HISTORY: She is , living with her . Never smoked, no alcohol, no drug use. ALLERGIES: PENICILLIN, CODEINE, MORPHINE, ERYTHROMYCIN BASE AND CLAVULANIC ACID. MEDICATIONS: Refer to MAR REVIEW OF SYSTEMS: Constitutional: No malnutrition, weight loss, cachexia. Head: No traumatic brain or head injury. Skin: No edema, or rash. Ear: No infection. Eyes: No vision loss or color blindness. Nose: No bleeding or purulent discharges. Hearing: No hearing decrease. Neck: No recent injury. Breast: No history of cancer, masses,or discharges. Cardiac: No [place], arrhythmia. Pulmonary: No COPD. GI: No GI ulcer, GI bleeding. Urinary/genital: UTI. Endocrinologic: Obesity. Skeletomuscular: OA. Neurological: see HP. Psychiatric: Denies drug use/abuse. Otherwise, not [id number] review of systems. PHYSICAL EXAMINATION: General appearance is in subacute distress. HEENT: Normocephalic and nontraumatic. Eyes, nose, ears, and throat are unremarkable. Neck is supple. No lymphadenopathy. No crepitus. Cardiovascular: S1, S2, regular rate and rhythm. Pulmonary: Clear to auscultation bilaterally. Abdomen: Bowel sounds are positive. Extremities: No rash, lesions, or edema. No restriction of range of motion NEUROLOGICAL EXAMINATION: Awake. Oriented to time, place and person. PERRL. EOMI. CN: no focal findings. Muscle tone: within normal. Muscle strength: 5- DTR: 2 UE, 0-1 at knee Plantar reflex: Flexor/Neutral response bilaterally Gait: not examined in bed. Sensory exam: no abnormal findings. No acute cerebellar signs elicited. F-T-N test fine. Objective Objective Vital Signs Date Time Temp Pulse Resp B/P (MAP) Pulse Ox O2 Delivery O2 Flow Rate FiO2 04/05/17 10:48 97.6 53 14 106/47 (66) 98 Nasal Cannula 2.0 97.6 Intake and Output 04/05/17 06:59 Intake Total 700 ml Balance 700 ml Intake Oral 700 ml # Voids 1 Vitals Signs Vitals VS - Last 72 Hours, by Label Date Time Temp Pulse Resp B/P (MAP) Pulse Ox O2 Delivery O2 Flow Rate FiO2 04/05/17 10:48 97.6 53 14 106/47 (66) 98 Nasal Cannula 2.0 97.6 04/05/17 08:48 54 111/55 04/05/17 08:00 Nasal Cannula 2.0 04/05/17 07:55 96.6 54 18 111/55 (73) 98 Nasal Cannula 2.0 96.6 04/05/17 02:50 97.7 58 18 101/42 (61) 96 Nasal Cannula 2.0 97.7 04/04/17 23:08 97.7 50 16 112/49 (70) 95 Nasal Cannula 2.0 97.7 04/04/17 22:45 20 04/04/17 22:12 20 93 Room Air 04/04/17 19:43 96 Nasal Cannula 2.0 04/04/17 19:30 Nasal Cannula 2.0 04/04/17 19:00 98.1 63 18 138/50 (79) 95 Nasal Cannula 2.0 98.1 04/04/17 18:40 96 04/04/17 18:02 97.9 54 20 135/65 (88) 96 Room Air 97.9 04/04/17 17:31 Nasal Cannula 2.0 04/04/17 17:27 97.9 54 20 135/65 (88) 96 Room Air 97.9 Laboratory Laboratory Laboratory Tests Test 04/04/17 18:35 04/05/17 05:05 04/05/17 10:55 White Blood Count 5.6 x10^3/uL (4.0-11.0) Red Blood Count 4.45 x10^6/uL (3.50-5.40) Hemoglobin 13.2 g/dL (12.0-15.5) Hematocrit 39.0 % (36.0-47.0) Mean Corpuscular Volume 88 fL (79-100) Mean Corpuscular Hemoglobin 30 pg (25-35) Mean Corpuscular Hemoglobin Concent 34 g/dL (31-37) Red Cell Distribution Width 14.1 % (11.5-14.5) Platelet Count 197 x10^3/uL (140-400) Neutrophils (%) (Auto) 68 % (31-73) Lymphocytes (%) (Auto) 22 % (24-48) Monocytes (%) (Auto) 8 % (0-9) Eosinophils (%) (Auto) 2 % (0-3) Basophils (%) (Auto) 1 % (0-3) Neutrophils # (Auto) 3.8 x10^3uL (1.8-7.7) Lymphocytes # (Auto) 1.2 x10^3/uL (1.0-4.8) Monocytes # (Auto) 0.5 x10^3/uL (0.0-1.1) Eosinophils # (Auto) 0.1 x10^3/uL (0.0-0.7) Basophils # (Auto) 0.1 x10^3/uL (0.0-0.2) Erythrocyte Sedimentation Rate 7 (0-25) Prothrombin Time 13.2 SEC (11.7-14.0) Prothromb Time International Ratio 1.1 (0.8-1.1) Sodium Level 140 mmol/L (136-145) Potassium Level 4.2 mmol/L (3.5-5.1) Chloride Level 106 mmol/L (98-107) Carbon Dioxide Level 28 mmol/L (21-32) Anion Gap 6 (6-14) Blood Urea Nitrogen 9 mg/dL (7-20) Creatinine 0.8 mg/dL (0.6-1.0) Estimated GFR (Cockcroft-Gault) 69.9 Glucose Level 97 mg/dL (70-99) Calcium Level 9.2 mg/dL (8.5-10.1) Magnesium Level 2.3 mg/dL (1.8-2.4) Troponin I Quantitative < 0.017 ng/mL (0.000-0.055) < 0.017 ng/mL (0.000-0.055) Triglycerides Level 204 mg/dL (0-150) Cholesterol Level 183 mg/dL (0-200) LDL Cholesterol, Calculated 113 mg/dL (0-100) VLDL Cholesterol, Calculated 41 mg/dL (0-40) Non-HDL Cholesterol Calculated 154 mg/dL (0-129) HDL Cholesterol 29 mg/dL (40-60) Cholesterol/HDL Ratio 6.3 Thyroid Stimulating Hormone (TSH) 0.389 uIU/mL (0.358-3.74) Medication Medications Current Medications Acetaminophen (Tylenol) 650 mg PRN Q6HRS PRN PO MILD PAIN / TEMP Last administered on 04/04/17 20:46; Start 04/04/17 at 17:45 Acetaminophen/ Hydrocodone Bitart (Lortab 5/325) 1 tab Q6HRS PRN PO PAIN; Start 04/04/17 at 17:45; Status UNV Alprazolam (Xanax) 0.5 mg BID PO ; Start 04/04/17 at 21:00; Stop 04/05/17 at 12: 02; Status DC Alprazolam (Xanax) 0.5 mg BID PRN PO anxiety; Start 04/05/17 at 12:15 Atorvastatin Calcium (Lipitor) 80 mg QHS PO ; Start 04/05/17 at 21:00 Celecoxib (CeleBREX) 200 mg DAILY PO ; Start 04/05/17 at 09:00; Stop 04/05/17 at 09:00; Status DC Cetirizine HCl (ZyrTEC) 10 mg DAILY PO Last administered on 04/05/17 08:47; Start 04/05/17 at 09:00 Famotidine (Pepcid) 40 mg DAILY PO Last administered on 04/05/17 08:47; Start 04/05/17 at 09:00 Fentanyl Citrate (Fentanyl 2ml Vial) 25 mcg PRN Q2HR PRN IV PAIN Last administered on 04/04/17 18:40; Start 04/04/17 at 17:45; Stop 04/04/17 at 21:11 ; Status DC Fentanyl Citrate (Fentanyl 2ml Vial) 50 mcg PRN Q2HR PRN IV PAIN Last administered on 04/04/17 22:12; Start 04/04/17 at 21:15 Gabapentin (Neurontin) 600 mg QHS PO Last administered on 04/04/17 20:46; Start 04/04/17 at 21:00 Gadobutrol (Gadavist) 7 mmol 1X ONCE IV Last administered on 04/05/17 12:49; Start 04/05/17 at 12:30; Stop 04/05/17 at 12:31; Status DC Hydralazine HCl (Apresoline) 10 mg PRN Q4HRS PRN IVP ELEVATED BP, SEE COMMENTS ; Start 04/05/17 at 11:30 Ibuprofen (Motrin) 400 mg PRN Q6HRS PRN PO INFLAMMATION; Start 04/04/17 at 17: 45 Levothyroxine Sodium (Synthroid) 88 mcg DAILY07 PO Last administered on 08:47; Start 04/05/17 at 09:00 Metoprolol Succinate (Toprol Xl) 25 mg DAILY PO ; Start 04/06/17 at 09:00 Metoprolol Succinate (Toprol Xl) 50 mg DAILY PO Last administered on 04/05/17 08:48; Start 04/05/17 at 09:00; Stop 04/05/17 at 11:03; Status DC Ondansetron HCl (Zofran) 4 mg PRN Q6HRS PRN IV NAUSEA/VOMITING; Start 04/04/17 at 17:45 Simvastatin (Zocor) 80 mg QHS PO Last administered on 04/04/17 20:46; Start at 21:00; Stop 04/05/17 at 12:24; Status DC Trazodone HCl (Desyrel) 50 mg PRN QHS PRN PO INSOMNIA; Start 04/04/17 at 19:00 Vitamin D (Vitamin D3) 1,000 unit DAILY PO Last administered on 04/05/17 08:47 ; Start 04/05/17 at 09:00 Comment Review of Relevant I have reviewed the following items jeannine (where applicable) has been applied. HEATH MORENO MD Apr 05, 2017 13:31
--- NOTE | 2017-04-05 14:12 | PDOC ---
PROGRESS NOTES Chief Complaint Chief Complaint 1. Acute headache - brain mass, likely meningioma 2. Chest pains 3. Hx CAD, dyslipidemia, hypothyroidism - all chronic stable History of Present Illness History of Present Illness MRI head showed small right sided mass discussed with Neuro LP might be the next step if tests unrevealing, r/o high opening pressures or meningitis though the latter unlikely PT/OT Resume home meds - hld off NSAID in case LP Vitals Vitals Vital Signs Date Time Temp Pulse Resp B/P (MAP) Pulse Ox O2 Delivery O2 Flow Rate FiO2 04/05/17 10:48 97.6 53 14 106/47 (66) 98 Nasal Cannula 2.0 97.6 Physical Exam General: Alert, Oriented X3, Cooperative, No acute distress Heart: Regular rate (SB), Normal S1, Normal S2, Other (2/6 diastolic murmur to JAG border) Lungs: Clear Abdomen: Soft, No tenderness Extremities: No cyanosis, No edema Skin: No breakdown, No significant lesion Labs LABS Laboratory Tests Test 04/04/17 18:35 04/05/17 05:05 04/05/17 10:55 White Blood Count 5.6 x10^3/uL (4.0-11.0) Red Blood Count 4.45 x10^6/uL (3.50-5.40) Hemoglobin 13.2 g/dL (12.0-15.5) Hematocrit 39.0 % (36.0-47.0) Mean Corpuscular Volume 88 fL (79-100) Mean Corpuscular Hemoglobin 30 pg (25-35) Mean Corpuscular Hemoglobin Concent 34 g/dL (31-37) Red Cell Distribution Width 14.1 % (11.5-14.5) Platelet Count 197 x10^3/uL (140-400) Neutrophils (%) (Auto) 68 % (31-73) Lymphocytes (%) (Auto) 22 % (24-48) Monocytes (%) (Auto) 8 % (0-9) Eosinophils (%) (Auto) 2 % (0-3) Basophils (%) (Auto) 1 % (0-3) Neutrophils # (Auto) 3.8 x10^3uL (1.8-7.7) Lymphocytes # (Auto) 1.2 x10^3/uL (1.0-4.8) Monocytes # (Auto) 0.5 x10^3/uL (0.0-1.1) Eosinophils # (Auto) 0.1 x10^3/uL (0.0-0.7) Basophils # (Auto) 0.1 x10^3/uL (0.0-0.2) Erythrocyte Sedimentation Rate 7 (0-25) Prothrombin Time 13.2 SEC (11.7-14.0) Prothromb Time International Ratio 1.1 (0.8-1.1) Sodium Level 140 mmol/L (136-145) Potassium Level 4.2 mmol/L (3.5-5.1) Chloride Level 106 mmol/L (98-107) Carbon Dioxide Level 28 mmol/L (21-32) Anion Gap 6 (6-14) Blood Urea Nitrogen 9 mg/dL (7-20) Creatinine 0.8 mg/dL (0.6-1.0) Estimated GFR (Cockcroft-Gault) 69.9 Glucose Level 97 mg/dL (70-99) Calcium Level 9.2 mg/dL (8.5-10.1) Magnesium Level 2.3 mg/dL (1.8-2.4) Troponin I Quantitative < 0.017 ng/mL (0.000-0.055) < 0.017 ng/mL (0.000-0.055) Triglycerides Level 204 mg/dL (0-150) Cholesterol Level 183 mg/dL (0-200) LDL Cholesterol, Calculated 113 mg/dL (0-100) VLDL Cholesterol, Calculated 41 mg/dL (0-40) Non-HDL Cholesterol Calculated 154 mg/dL (0-129) HDL Cholesterol 29 mg/dL (40-60) Cholesterol/HDL Ratio 6.3 Thyroid Stimulating Hormone (TSH) 0.389 uIU/mL (0.358-3.74) Review of Systems Review of Systems no n.v.d headahce better 01/29 Assessment and Plan Assessmemt and Plan consult neurosurg, cont current pain better Problems: Comment Review of Relevant I have reviewed the following items jeannine (where applicable) has been applied. Labs Laboratory Tests Test 04/04/17 18:35 04/05/17 05:05 04/05/17 10:55 White Blood Count 5.6 x10^3/uL (4.0-11.0) Red Blood Count 4.45 x10^6/uL (3.50-5.40) Hemoglobin 13.2 g/dL (12.0-15.5) Hematocrit 39.0 % (36.0-47.0) Mean Corpuscular Volume 88 fL (79-100) Mean Corpuscular Hemoglobin 30 pg (25-35) Mean Corpuscular Hemoglobin Concent 34 g/dL (31-37) Red Cell Distribution Width 14.1 % (11.5-14.5) Platelet Count 197 x10^3/uL (140-400) Neutrophils (%) (Auto) 68 % (31-73) Lymphocytes (%) (Auto) 22 % (24-48) Monocytes (%) (Auto) 8 % (0-9) Eosinophils (%) (Auto) 2 % (0-3) Basophils (%) (Auto) 1 % (0-3) Neutrophils # (Auto) 3.8 x10^3uL (1.8-7.7) Lymphocytes # (Auto) 1.2 x10^3/uL (1.0-4.8) Monocytes # (Auto) 0.5 x10^3/uL (0.0-1.1) Eosinophils # (Auto) 0.1 x10^3/uL (0.0-0.7) Basophils # (Auto) 0.1 x10^3/uL (0.0-0.2) Erythrocyte Sedimentation Rate 7 (0-25) Prothrombin Time 13.2 SEC (11.7-14.0) Prothromb Time International Ratio 1.1 (0.8-1.1) Sodium Level 140 mmol/L (136-145) Potassium Level 4.2 mmol/L (3.5-5.1) Chloride Level 106 mmol/L (98-107) Carbon Dioxide Level 28 mmol/L (21-32) Anion Gap 6 (6-14) Blood Urea Nitrogen 9 mg/dL (7-20) Creatinine 0.8 mg/dL (0.6-1.0) Estimated GFR (Cockcroft-Gault) 69.9 Glucose Level 97 mg/dL (70-99) Calcium Level 9.2 mg/dL (8.5-10.1) Magnesium Level 2.3 mg/dL (1.8-2.4) Troponin I Quantitative < 0.017 ng/mL (0.000-0.055) < 0.017 ng/mL (0.000-0.055) Triglycerides Level 204 mg/dL (0-150) Cholesterol Level 183 mg/dL (0-200) LDL Cholesterol, Calculated 113 mg/dL (0-100) VLDL Cholesterol, Calculated 41 mg/dL (0-40) Non-HDL Cholesterol Calculated 154 mg/dL (0-129) HDL Cholesterol 29 mg/dL (40-60) Cholesterol/HDL Ratio 6.3 Thyroid Stimulating Hormone (TSH) 0.389 uIU/mL (0.358-3.74) Laboratory Tests Test 04/04/17 18:35 04/05/17 05:05 04/05/17 10:55 White Blood Count 5.6 x10^3/uL (4.0-11.0) Red Blood Count 4.45 x10^6/uL (3.50-5.40) Hemoglobin 13.2 g/dL (12.0-15.5) Hematocrit 39.0 % (36.0-47.0) Mean Corpuscular Volume 88 fL (79-100) Mean Corpuscular Hemoglobin 30 pg (25-35) Mean Corpuscular Hemoglobin Concent 34 g/dL (31-37) Red Cell Distribution Width 14.1 % (11.5-14.5) Platelet Count 197 x10^3/uL (140-400) Neutrophils (%) (Auto) 68 % (31-73) Lymphocytes (%) (Auto) 22 % (24-48) Monocytes (%) (Auto) 8 % (0-9) Eosinophils (%) (Auto) 2 % (0-3) Basophils (%) (Auto) 1 % (0-3) Neutrophils # (Auto) 3.8 x10^3uL (1.8-7.7) Lymphocytes # (Auto) 1.2 x10^3/uL (1.0-4.8) Monocytes # (Auto) 0.5 x10^3/uL (0.0-1.1) Eosinophils # (Auto) 0.1 x10^3/uL (0.0-0.7) Basophils # (Auto) 0.1 x10^3/uL (0.0-0.2) Erythrocyte Sedimentation Rate 7 (0-25) Prothrombin Time 13.2 SEC (11.7-14.0) Prothromb Time International Ratio 1.1 (0.8-1.1) Sodium Level 140 mmol/L (136-145) Potassium Level 4.2 mmol/L (3.5-5.1) Chloride Level 106 mmol/L (98-107) Carbon Dioxide Level 28 mmol/L (21-32) Anion Gap 6 (6-14) Blood Urea Nitrogen 9 mg/dL (7-20) Creatinine 0.8 mg/dL (0.6-1.0) Estimated GFR (Cockcroft-Gault) 69.9 Glucose Level 97 mg/dL (70-99) Calcium Level 9.2 mg/dL (8.5-10.1) Magnesium Level 2.3 mg/dL (1.8-2.4) Troponin I Quantitative < 0.017 ng/mL (0.000-0.055) < 0.017 ng/mL (0.000-0.055) Triglycerides Level 204 mg/dL (0-150) Cholesterol Level 183 mg/dL (0-200) LDL Cholesterol, Calculated 113 mg/dL (0-100) VLDL Cholesterol, Calculated 41 mg/dL (0-40) Non-HDL Cholesterol Calculated 154 mg/dL (0-129) HDL Cholesterol 29 mg/dL (40-60) Cholesterol/HDL Ratio 6.3 Thyroid Stimulating Hormone (TSH) 0.389 uIU/mL (0.358-3.74) Medications Current Medications Acetaminophen (Tylenol) 650 mg PRN Q6HRS PRN PO MILD PAIN / TEMP Last administered on 04/04/17 20:46; Start 04/04/17 at 17:45 Ibuprofen (Motrin) 400 mg PRN Q6HRS PRN PO INFLAMMATION; Start 04/04/17 at 17: 45 Ondansetron HCl (Zofran) 4 mg PRN Q6HRS PRN IV NAUSEA/VOMITING; Start 04/04/17 at 17:45 Acetaminophen/ Hydrocodone Bitart (Lortab 5/325) 1 tab Q6HRS PRN PO PAIN; Start 04/04/17 at 17:45; Status UNV Fentanyl Citrate (Fentanyl 2ml Vial) 25 mcg PRN Q2HR PRN IV PAIN Last administered on 6/14/17at 18:40; Start 04/04/17 at 17:45; Stop 04/04/17 at 21:11 ; Status DC Alprazolam (Xanax) 0.5 mg BID PO ; Start 04/04/17 at 21:00; Stop 04/05/17 at 12: 02; Status DC Celecoxib (CeleBREX) 200 mg DAILY PO ; Start 04/05/17 at 09:00; Stop 04/05/17 at 09:00; Status DC Vitamin D (Vitamin D3) 1,000 unit DAILY PO Last administered on 04/05/17 08:47 ; Start 04/05/17 at 09:00 Levothyroxine Sodium (Synthroid) 88 mcg DAILY07 PO Last administered on 08:47; Start 04/05/17 at 09:00 Trazodone HCl (Desyrel) 50 mg PRN QHS PRN PO INSOMNIA; Start 04/04/17 at 19:00 Famotidine (Pepcid) 40 mg DAILY PO Last administered on 04/05/17 08:47; Start 04/05/17 at 09:00 Gabapentin (Neurontin) 600 mg QHS PO Last administered on 04/04/17 20:46; Start 04/04/17 at 21:00 Cetirizine HCl (ZyrTEC) 10 mg DAILY PO Last administered on 04/05/17 08:47; Start 04/05/17 at 09:00 Metoprolol Succinate (Toprol Xl) 50 mg DAILY PO Last administered on 04/05/17 08:48; Start 04/05/17 at 09:00; Stop 04/05/17 at 11:03; Status DC Simvastatin (Zocor) 80 mg QHS PO Last administered on 04/04/17 20:46; Start at 21:00; Stop 04/05/17 at 12:24; Status DC Fentanyl Citrate (Fentanyl 2ml Vial) 50 mcg PRN Q2HR PRN IV PAIN Last administered on 04/04/17 22:12; Start 04/04/17 at 21:15 Metoprolol Succinate (Toprol Xl) 25 mg DAILY PO ; Start 04/06/17 at 09:00 Hydralazine HCl (Apresoline) 10 mg PRN Q4HRS PRN IVP ELEVATED BP, SEE COMMENTS ; Start 04/05/17 at 11:30 Alprazolam (Xanax) 0.5 mg BID PRN PO anxiety; Start 04/05/17 at 12:15 Gadobutrol (Gadavist) 7 mmol 1X ONCE IV Last administered on 04/05/17t 12:49; Start 04/05/17 at 12:30; Stop 04/05/17 at 12:31; Status DC Atorvastatin Calcium (Lipitor) 80 mg QHS PO ; Start 04/05/17 at 21:00 Active Scripts Active Reported Celebrex (Celecoxib) 200 Mg Capsule 1 Cap PO DAILY Vitamin D (Cholecalciferol (Vitamin D3)) 1,000 Unit Tablet 1,000 Unit PO DAILY Trazodone Hcl 50 Mg Tablet 50 Mg PO HS PRN Simvastatin 80 Mg Tablet 80 Mg PO HS Toprol Xl (Metoprolol Succinate) 50 Mg Tab.er.24h 1 Tab PO DAILY Levothyroxine Sodium 88 Mcg Tablet 1 Tab PO DAILY Levocetirizine Dihydrochloride 5 Mg Tablet 1 Tab PO DAILY Gabapentin 600 Mg Tablet 600 Mg PO HS Pepcid (Famotidine) 40 Mg Tablet 40 Mg PO DAILY Alprazolam 0.5 Mg Tablet 1 Tab PO BID Vitals/I & O Vital Sign - Last 24 Hours 04/04/17 04/04/17 04/04/17 04/04/17 17:27 17:31 18:02 18:40 Temp 97.9 97.9 97.9 97.9 Pulse 54 54 Resp 20 20 B/P (MAP) 135/65 (88) 135/65 (88) Pulse Ox 96 96 96 O2 Delivery Room Air Nasal Cannula Room Air O2 Flow Rate 2.0 04/04/17 04/04/17 04/04/17 04/04/17 19:00 19:30 19:43 22:12 Temp 98.1 98.1 Pulse 63 Resp 18 20 B/P (MAP) 138/50 (79) Pulse Ox 95 96 93 O2 Delivery Nasal Cannula Nasal Cannula Nasal Cannula Room Air O2 Flow Rate 2.0 2.0 2.0 04/04/17 04/04/17 04/05/17 04/05/17 22:45 23:08 02:50 07:55 Temp 97.7 97.7 96.6 97.7 97.7 96.6 Pulse 50 58 54 Resp 20 16 18 18 B/P (MAP) 112/49 (70) 101/42 (61) 111/55 (73) Pulse Ox 95 96 98 O2 Delivery Nasal Cannula Nasal Cannula Nasal Cannula O2 Flow Rate 2.0 2.0 2.0 04/05/17 04/05/17 04/05/17 08:00 08:48 10:48 Temp 97.6 97.6 Pulse 54 53 Resp 14 B/P (MAP) 111/55 106/47 (66) Pulse Ox 98 O2 Delivery Nasal Cannula Nasal Cannula O2 Flow Rate 2.0 2.0 Intake and Output 04/04/17 04/04/17 04/05/17 15:00 23:00 07:00 Intake Total 100 ml 600 ml Balance 100 ml 600 ml GRICEL JOSEPH MD Apr 05, 2017 14:12
[2017-04-05 14:18] VITALS: BP 123/47
--- NOTE | 2017-04-05 17:06 | PDOC ---
SUBJECTIVE Subjective Pt seen/examined. Full consult to follow. Briefly, 77F with new headache about 1 week ago. Improving. Left sided headache. No other associated complaints. Neuro intact. MRI with small 1-2cm enhancement with appearance of meningioma cortically over right superior temporal region/sylvian fissure. No significant mass effect. No adjacent edema or other abnormality of adjacent parenchyma. Headaches not likely directly related to this lesion. Recommend repeat MRI brain with/without contrast in three months to reassess lesion. Could d/c from NS standpoint when otherwise meets criteria medically. Discussed with patient and family in detail. All questions answered. All in agreement. OBJECTIVE Vital Signs Vital Signs Date Time Temp Pulse Resp B/P (MAP) Pulse Ox O2 Delivery O2 Flow Rate FiO2 04/05/17 14:18 98.7 50 12 123/47 (72) 98 Nasal Cannula 2.0 98.7 04/05/17 10:48 97.6 53 14 106/47 (66) 98 Nasal Cannula 2.0 97.6 04/05/17 08:48 54 111/55 04/05/17 08:00 Nasal Cannula 2.0 04/05/17 07:55 96.6 54 18 111/55 (73) 98 Nasal Cannula 2.0 96.6 04/05/17 02:50 97.7 58 18 101/42 (61) 96 Nasal Cannula 2.0 97.7 04/04/17 23:08 97.7 50 16 112/49 (70) 95 Nasal Cannula 2.0 97.7 04/04/17 22:45 20 04/04/17 22:12 20 93 Room Air 04/04/17 19:43 96 Nasal Cannula 2.0 04/04/17 19:30 Nasal Cannula 2.0 04/04/17 19:00 98.1 63 18 138/50 (79) 95 Nasal Cannula 2.0 98.1 04/04/17 18:40 96 04/04/17 18:02 97.9 54 20 135/65 (88) 96 Room Air 97.9 04/04/17 17:31 Nasal Cannula 2.0 04/04/17 17:27 97.9 54 20 135/65 (88) 96 Room Air 97.9 I & O Intake and Output 04/05/17 06:59 Intake Total 700 ml Balance 700 ml Intake Oral 700 ml # Voids 1 COMMENT Lab Laboratory Tests Test 04/04/17 18:35 04/05/17 05:05 04/05/17 10:55 White Blood Count 5.6 x10^3/uL (4.0-11.0) Red Blood Count 4.45 x10^6/uL (3.50-5.40) Hemoglobin 13.2 g/dL (12.0-15.5) Hematocrit 39.0 % (36.0-47.0) Mean Corpuscular Volume 88 fL (79-100) Mean Corpuscular Hemoglobin 30 pg (25-35) Mean Corpuscular Hemoglobin Concent 34 g/dL (31-37) Red Cell Distribution Width 14.1 % (11.5-14.5) Platelet Count 197 x10^3/uL (140-400) Neutrophils (%) (Auto) 68 % (31-73) Lymphocytes (%) (Auto) 22 % (24-48) Monocytes (%) (Auto) 8 % (0-9) Eosinophils (%) (Auto) 2 % (0-3) Basophils (%) (Auto) 1 % (0-3) Neutrophils # (Auto) 3.8 x10^3uL (1.8-7.7) Lymphocytes # (Auto) 1.2 x10^3/uL (1.0-4.8) Monocytes # (Auto) 0.5 x10^3/uL (0.0-1.1) Eosinophils # (Auto) 0.1 x10^3/uL (0.0-0.7) Basophils # (Auto) 0.1 x10^3/uL (0.0-0.2) Erythrocyte Sedimentation Rate 7 (0-25) Prothrombin Time 13.2 SEC (11.7-14.0) Prothromb Time International Ratio 1.1 (0.8-1.1) Sodium Level 140 mmol/L (136-145) Potassium Level 4.2 mmol/L (3.5-5.1) Chloride Level 106 mmol/L (98-107) Carbon Dioxide Level 28 mmol/L (21-32) Anion Gap 6 (6-14) Blood Urea Nitrogen 9 mg/dL (7-20) Creatinine 0.8 mg/dL (0.6-1.0) Estimated GFR (Cockcroft-Gault) 69.9 Glucose Level 97 mg/dL (70-99) Calcium Level 9.2 mg/dL (8.5-10.1) Magnesium Level 2.3 mg/dL (1.8-2.4) Troponin I Quantitative < 0.017 ng/mL (0.000-0.055) < 0.017 ng/mL (0.000-0.055) Triglycerides Level 204 mg/dL (0-150) Cholesterol Level 183 mg/dL (0-200) LDL Cholesterol, Calculated 113 mg/dL (0-100) VLDL Cholesterol, Calculated 41 mg/dL (0-40) Non-HDL Cholesterol Calculated 154 mg/dL (0-129) HDL Cholesterol 29 mg/dL (40-60) Cholesterol/HDL Ratio 6.3 Thyroid Stimulating Hormone (TSH) 0.389 uIU/mL (0.358-3.74) JOYCE LAZO MD Apr 05, 2017 17:06
[2017-04-05] MEDS ORDERED: ATORVASTATIN CALCIUM 40 MG TABLET. PO SCH (21:00)
[2017-04-06] MEDS ORDERED: METOPROLOL SUCC 24HR ER 25 MG TAB.ER.24H. PO SCH (09:00)
--- NOTE | 2017-04-17 15:43 | PDOC3 ---
Discharge Summary Visit Information Date of Admission: Apr 04, 2017 Date of Discharge: Apr 05, 2017 Admitting Diagnosis: headache Final Diagnosis 1. Acute headache - 2. brain mass, appears as meningioma 3. atypical Chest pains 4. Hx CAD, dyslipidemia, hypothyroidism - Brief Hospital Course Allergies Allergies Coded Allergies Type Severity Reaction Last Updated Verified codeine Allergy Severe Throat swells 04/04/17 Yes morphine Allergy Severe Throat swells 04/04/17 Yes Penicillins Allergy Intermediate Hives 01/04/17 Yes amoxicillin Allergy Intermediate 01/04/17 Yes clavulanic acid Allergy Intermediate 01/04/17 Yes erythromycin base Allergy Intermediate 01/04/17 Yes latex Allergy Intermediate 04/05/17 Yes Brief Hospital Course Ms. Cassidy is a 77 old presented with [facility], CT showed poss mass, MRI head showed small right sided mass discussed with Neuro Surg will follow in clinic in a few weeks, discuss resection Discharge Information Condition at Discharge: Improved Follow Up: Weeks Disposition/Orders: D/C to Home Scheduled Alprazolam (Alprazolam), 1 TAB PO BID, (Reported) Celecoxib (Celebrex), 1 CAP PO DAILY, (Reported) Cholecalciferol (Vitamin D3) (Vitamin D), 1,000 UNIT PO DAILY, (Reported) Famotidine (Pepcid), 40 MG PO DAILY, (Reported) Gabapentin (Gabapentin), 600 MG PO HS, (Reported) Levocetirizine Dihydrochloride (Levocetirizine Dihydrochloride), 1 TAB PO DAILY, (Reported) Levothyroxine Sodium (Levothyroxine Sodium), 1 TAB PO DAILY, (Reported) Metoprolol Succinate (Toprol Xl), 1 TAB PO DAILY, (Reported) Simvastatin (Simvastatin), 80 MG PO HS, (Reported) Scheduled PRN Ibuprofen (Ibuprofen), 400 MG PO PRN Q6HRS PRN for INFLAMMATION Trazodone Hcl (Trazodone Hcl), 50 MG PO HS PRN for INSOMNIA, (Reported) GRICEL JOSEPH MD Apr 17, 2017 15:43
== END 2017-04-05 19:55 | disposition home or self-care (01) | DRG 55 ==
LOC: 6 SOUTH 17:14
PROVIDERS: ADMIT Internal Medicine; ATTEND Internal Medicine
DX: D32.0 Benign neoplasm of cerebral meninges (principal); E24.9 Cushing's syndrome, unspecified; R07.89 Other chest pain; E78.5 Hyperlipidemia, unspecified; E66.9 Obesity, unspecified; I10 Essential (primary) hypertension; E11.9 Type 2 diabetes mellitus without complications; M06.9 Rheumatoid arthritis, unspecified; K21.9 Gastro-esophageal reflux disease without esophagitis; I25.10 Atherosclerotic heart disease of native coronary artery without angina pectoris; E03.9 Hypothyroidism, unspecified; Z96.653 Presence of artificial knee joint, bilateral; Z96.612 Presence of left artificial shoulder joint; F41.9 Anxiety disorder, unspecified; G89.29 Other chronic pain; M54.9 Dorsalgia, unspecified; M19.90 Unspecified osteoarthritis, unspecified site; R00.1 Bradycardia, unspecified; Z88.0 Allergy status to penicillin; Z88.1 Allergy status to other antibiotic agents; Z80.1 Family history of malignant neoplasm of trachea, bronchus and lung; I25.2 Old myocardial infarction; Z86.011 Personal history of benign neoplasm of the brain; Z86.73 Personal history of transient ischemic attack (TIA), and cerebral infarction without residual deficits; Z88.8 Allergy status to other drugs, medicaments and biological substances; Z88.5 Allergy status to narcotic agent; Z90.49 Acquired absence of other specified parts of digestive tract; Z90.710 Acquired absence of both cervix and uterus
CPT/HCPCS: 36415; 70553; 80048; 80061; 83735; 84443; 84484; 85027; 85610; 85651; J3010; A9585

== ENCOUNTER → 2017-06-12 | Outpatient (CLI) | payer MEDICARE, BC ==
[~2017-06-12] MED LIST changes: +IBUP-1027 PO
[2017-06-12 16:02] LABS: BASO # 0.1 x10^3/uL (0.0-0.2); BASO % 1 % (0-3); EOS % 3 % (0-3); HEMATOCRIT 39.9 % (36.0-47.0); HEMOGLOBIN 13.8 g/dL (12.0-15.5); LYMPH # 1.7 x10^3/uL (1.0-4.8); LYMPH % 28 % (24-48); MEAN CORPUSCULAR HEMOGLOBIN 29 pg (25-35); MEAN CORPUSCULAR HGB CONC 35 g/dL (31-37); MEAN CORPUSCULAR VOLUME 84 fL (79-100); MONO % 9 % (0-9); NEUT % 60 % (31-73); PLATELET COUNT 234 x10^3/uL (140-400); RED BLOOD COUNT 4.72 x10^6/uL (3.50-5.40); RED CELL DISTRIBUTION WIDTH 13.4 % (11.5-14.5); WHITE BLOOD COUNT 6.2 x10^3/uL (4.0-11.0)
[2017-06-12 16:18] LABS: CREATININE 0.8 mg/dL (0.6-1.0); GFR 69.9
[2017-06-12 16:58] LABS: FREE T4 1.39 ng/dL (0.76-1.46)
== END | disposition home or self-care (01) ==
LOC: LAB 15:33
PROVIDERS: ATTEND Psychiatry & Neurology Neurology
DX: R51 Headache (principal)
CPT/HCPCS: 36415; 82565; 84439; 84443; 84520; 85025; 85651; 86141

== ENCOUNTER → 2017-06-26 | Outpatient (CLI) | payer MEDICARE, BC ==
[~2017-06-26] MED LIST changes: +GADOBUTROL 7.5 MMOL/7.5 ML VIAL IV ONE
--- NOTE | 2017-06-26 09:45 | KCIC ---
MRI Brain with and without contrast History: Brain mass, continued severe chronic headaches Technique: Multiplanar, multi sequential pre and postcontrast MR imaging was performed of the brain. Contrast: 7 cc Gadavist Comparison: April 05, 2017 Findings: There is again extra-axial enhancing mass along the right lateral convexity in the frontal temporal region, up to 2.3 cm AP by 0.9 cm transverse by 2.1 cm cc, not significantly changed in the short-term interval. There is no new signal abnormality of the adjacent parenchyma. There is no new intra-axial mass effect, midline shift, or extra-axial fluid collection. There is again very mild T2 and FLAIR hyperintense signal abnormality of the supratentorial white matter bilaterally. Ventricular size is stable, within normal limits. There is mild generalized supratentorial involutional change. There is no significant hemosiderin deposition of the brain parenchyma. There is preservation of the major arterial intracranial flow voids at the skull base. Mastoid air cells are aerated. There has been lens surgery bilaterally. Paranasal sinuses are overall aerated. There is no new abnormality of the pituitary gland or pineal gland. Cerebellar tonsils are normal in location. Impression: 1. Extra-axial enhancing mass along the right lateral convexity is stable, most compatible with a meningioma. 2. Very mild T2 and FLAIR hyperintense signal abnormality of the supratentorial white matter bilaterally is most commonly due to chronic microvascular ischemic disease in a patient this age. Electronically signed by: Henok Winchester MD (06/26/2017 9:42 AM) [id number]
== END | disposition home or self-care (01) ==
LOC: KCIC MRI 08:33
PROVIDERS: ATTEND Neurological Surgery
DX: I67.82 Cerebral ischemia (principal); G93.9 Disorder of brain, unspecified
CPT/HCPCS: 70553; A9585

== ENCOUNTER → 2017-09-10 | Outpatient (CLI) | payer MEDICARE, BC ==
--- NOTE | 2017-09-10 11:17 | KCIC ---
MRI Brain with and without contrast History: Headache, dizziness for 10 days Technique: Multiplanar, multi sequential pre and postcontrast MR imaging was performed of the brain. Contrast: 10 cc Gadavist Comparison: June 26, 2017 and April 05, 2017 Findings: There is motion degradation. There is similar extra-axial enhancing mass along the right lateral convexity in the frontal temporal region. This measures up to 2.3 cm AP by 0.9 cm transverse by approximately 2.1 cm CC, adjacent dural thickening and enhancement similar. There is no evidence of recent infarct or cytotoxic edema. Very minimal T2 and FLAIR hyperintense abnormality of the supratentorial white matter stable. Ventricular size is stable. There is again mild generalized supratentorial involutional change.There is no significant midline shift, intraaxial mass effect, or focal abnormal extra-axial fluid collection. There is no nodular parenchymal or leptomeningeal enhancement. There is preservation of the major intracranial flow-voids at the skull base. The cerebellar tonsils are normal in location. There is no significant abnormality of the pineal gland or pituitary gland. There has been lens surgery bilaterally. Paranasal sinuses are overall aerated. The mastoid air cells are aerated. There is preserved marrow signal of the clivus. Impression: 1. There is no new significant intracranial abnormality. There is stable extra-axial enhancing mass along the right lateral convexity likely due to meningioma. Electronically signed by: Henok Winchester MD (09/10/2017 11:14 AM) [email or web address]
--- NOTE | 2017-09-10 11:28 | KCIC ---
Neck MRA without and with contrast History: Headache and dizziness for 10 days Technique: [id number] and postcontrast MR angiography was performed of the neck. Contrast: 7 cc Gadavist Comparison: None Findings: Determination of any degree of stenosis is based on NASCET criteria. There is motion degradation. Vertebral artery origins are poorly visualized due to signal loss some motion, although otherwise patent bilaterally. Segments of the brachiocephalic and proximal right common carotid are also poorly visualized due to artifact in this region. Antegrade flow is demonstrated in the bilateral vertebral arteries as well as the bilateral common and internal carotid arteries. There is no significant stenosis identified of the internal or common carotid arteries. There is S-shaped curvature of the cervicothoracic spine. Impression: 1. There is no significant stenosis of the visualized cervical arterial vasculature. Vertebral artery origins and segments of the brachiocephalic and proximal right common carotid artery are poorly visualized on this exam due to artifact. Electronically signed by: Henok Winchester MD (09/10/2017 11:25 AM) [id number]
--- NOTE | 2017-09-10 11:36 | KCIC ---
MRA Brain History: Headache and dizziness for 10 days Technique: 3-D [id number] MR angiography was performed of the brain. Comparison: None Contrast: None Findings: Determination of any degree of stenosis is based on NASCET criteria. There is some motion degradation. Both vertebral arteries constitute the basilar artery. There is visualization segments of bilateral PICAs, AICAs, and superior cerebellar arteries. There is visualization of bilateral posterior communicating arteries. No significant anterior communicating artery is visualized. There is flow within bilateral anterior, middle, and posterior cerebral arteries. Flow is seen in the petrous, cavernous, and supraclinoid internal carotid arteries. No large aneurysm or arteriovenous malformation is identified. There is no significant focal stenosis. Impression: 1. There is no significant intracranial stenosis or aneurysm. Electronically signed by: Henok Winchester MD (09/10/2017 11:33 AM) [email or web address]
== END | disposition home or self-care (01) ==
LOC: KCIC MRI 09:26
PROVIDERS: ATTEND Family Medicine
DX: R51 Headache (principal); R42 Dizziness and giddiness
CPT/HCPCS: 70544; 70549; 70553; 82565; A9585